=== PATIENT | male | born 1940 | race Caucasian/White ===

== ENCOUNTER 2016-06-21 09:30 | Day surgery (SDC) | payer MEDICARE ==
[2016-06-14 09:02] VITALS: BMI 29.5
[~2016-06-21 09:30] MED LIST: DEXAMETHASONE SOD PHOSPHATE 10 MG/ML 1 ML VIAL IV ONE; FAMOTIDINE 20 MG/2 ML VIAL IV PRN; HEPARIN SODIUM,PORCINE 5,000 UNIT/ML 1 ML VIAL SQ ONE; MIDAZOLAM 2 MG/2 ML VIAL IV PRN; ONDANSETRON 4 MG/2 ML VIAL IVP ONE
[2016-06-21] MEDS: LIDOCAINE 1% 20 ML VIAL (10MG/ML) FOR IV START INTRADERMA PRN ×2 (10:35→10:40)
[2016-06-21] MEDS: LACTATED RINGERS 1,000 ML IV SCH ×2 (10:38→10:39)
[2016-06-21] MEDS ORDERED: INSULIN LISPRO (humaLOG) 300 UNIT/3 ML VIAL SQ ONE ×2 (10:43→14:03)
[2016-06-21 11:06] LABS: Glucose,Whole Blood 208 mg/dL (75-99)
--- NOTE | 2016-06-21 11:13 | P.GSHP ---
History of Present Illness H&P Date: 06/21/16 Chief Complaint: Umbilical hernia This a 75-year-old male who presents today for laparoscopic robotic-assisted repair of incarcerated umbilical hernia. He's had complaints of abdominal pain at his hernia. - Constitutional Constitutional: Reports as per HPI Past Medical History Past Medical History: Diabetes Mellitus, Deep Vein Thrombosis (DVT), GERD/Reflux , Hyperlipidemia, Hypertension, Osteoarthritis (OA) Additional Past Medical History / Comment(s): DVT -LEFT LEG History of Any Multi-Drug Resistant Organisms: None Reported Additional Past Surgical History / Comment(s): colonoscopy, BLADDER STONE REMOVED Past Anesthesia/Blood Transfusion Reactions: No Reported Reaction Past Psychological History: No Psychological Hx Reported Smoking Status: Former smoker Past Alcohol Use History: Rare Additional Past Alcohol Use History / Comment(s): STARTED SMOKING AT AGE 14 QUIT 1982 SMOKED 2PPD Past Drug Use History: None Reported - Past Family History Mother Family Medical History: Dementia Brother(s) Family Medical History: Cancer Additional Family Medical History / Comment(s): LARYNX CANCER Medications and Allergies Home Medications Medication Instructions Recorded Confirmed Type Insulin Glargine,Hum.rec.anlog 30 unit SQ HS 11/20/13 06/14/16 History [Lantus Solostar] Omeprazole [Omeprazole] 20 mg PO DAILY 11/20/13 06/14/16 History Simvastatin [Simvastatin] 40 mg PO HS 11/20/13 06/14/16 History amLODIPine [amLODIPine] 10 mg PO DAILY 11/20/13 06/14/16 History Rivaroxaban [Xarelto] 20 mg PO DAILY 06/14/16 06/15/16 History metFORMIN HCL 1,000 mg PO BID 06/14/16 06/14/16 History Allergies Allergy/AdvReac Type Severity Reaction Status Date / Time codeine Allergy Rash/Hives Verified 06/21/16 10:12 Surgical - Exam Vital Signs Temp Pulse Resp BP Pulse Ox 98.0 F 83 16 183/94 96 06/21/16 10:20 06/21/16 10:20 06/21/16 10:20 06/21/16 10:20 06/21/16 10:20 - General well developed, no distress - Eyes PERRL - ENT normal pinna - Neck no masses - Respiratory normal expansion - Cardiovascular Rhythm: regular - Abdomen Abdomen: soft, non tender Hernia: umbilical (Incarcerated umbilical hernia) Results - Labs Abnormal Lab Results - Last 24 Hours (Table) 06/21/16 Range/Units 10:34 POC Glucose (mg/dL) 208 H (75-99) mg/dL Assessment and Plan Plan: Incarcerated we'll hernia. We'll perform laparoscopic robotic-assisted repair.
[2016-06-21] MEDS ORDERED: BUPIVACAIN-EPI 0.25%-1:200,000 30 ML VIAL SQ ONE (11:37)
[2016-06-21] MEDS ORDERED: fentaNYL (PF) 50 MCG/ML 2 ML AMP ONE (11:40)
[2016-06-21] MEDS ORDERED: ROCURONIUM BROMIDE 10 MG/ML 10 ML VIAL IV ONE (11:40)
[2016-06-21] MEDS ORDERED: PROPOFOL 10 MG/ML 20 ML VIAL IV ONE (11:40)
[2016-06-21] MEDS ORDERED: MIDAZOLAM 2 MG/2 ML VIAL ONE (11:40)
[2016-06-21] MEDS ORDERED: LIDOCAINE 1% INJ 10MG/ML (20 ML MDV) ONE (11:40)
[2016-06-21] MEDS ORDERED: NEOSTIGMINE 1 MG/ML 10 ML VIAL ONE (11:40)
[2016-06-21] MEDS ORDERED: SODIUM CHLORIDE 0.9% 100 ML BAG IV ONE (11:40)
[2016-06-21] MEDS ORDERED: KETOROLAC 30 MG/ML 1 ML VIAL ONE (11:40)
[2016-06-21] MEDS ORDERED: ceFAZolin 1,000 MG VIAL ONE (11:40)
[2016-06-21] MEDS ORDERED: SUCCINYLCHOLINE CHLORIDE VIAL 200 MG/10 ML VIAL IV ONE (11:40)
[2016-06-21] MEDS ORDERED: GLYCOPYRROLATE 0.2 MG/ML 2 ML VIAL ONE (11:40)
[2016-06-21] MEDS: ceFAZolin 2 GM in SODIUM CHLORIDE 0.9% 100 ML IVPB ONE ×2 (11:45→17:04)
[2016-06-21] MEDS: HYDROmorphone 1 MG/ML 1 ML SYRINGE IVP PRN ×4 (13:15→13:36)
[2016-06-21 13:52] LABS: Glucose,Whole Blood 269 mg/dL (75-99)
[2016-06-21] MEDS ORDERED: LACTATED RINGERS 1,000 ML IV ONE (15:21)
[2016-06-21] MEDS ORDERED: ONDANSETRON 4 MG/2 ML VIAL IVP PRN (15:21)
[2016-06-21] MEDS ORDERED: NALOXONE 0.4 MG/ML 1 ML VIAL IV PRN (15:21)
[2016-06-21] MEDS ORDERED: HYDROmorphone 1 MG/ML 1 ML SYRINGE IVP PRN (15:21)
[2016-06-21] MEDS ORDERED: HYDROcodone/APAP 7.5-325MG 1 EACH TAB PO ONE (15:24)
[2016-06-21] MEDS ORDERED: HYDROcodone/APAP 7.5-325MG 1 EACH TAB PO PRN (18:06)
[2016-06-21] MEDS: amLODIPine 10 MG TAB PO SCH (20:00)
[2016-06-21 20:38] LABS: Glucose,Whole Blood 237 mg/dL (75-99)
[2016-06-21] MEDS ORDERED: ATORVASTATIN 20 MG TAB PO SCH (21:00)
[2016-06-21] MEDS ORDERED: HEPARIN SODIUM,PORCINE 5,000 UNIT/ML 1 ML VIAL SQ SCH (21:00)
[2016-06-21] MEDS ORDERED: INSULIN GLARGINE 100 UNIT/ML 10 ML VIAL SQ SCH (21:00)
[2016-06-21] MEDS: metFORMIN 500 MG TAB PO SCH (21:31)
[2016-06-21] MEDS: INSULIN LISPRO (humaLOG) 300 UNIT/3 ML VIAL SQ SCH (21:32)
[2016-06-22] MEDS ORDERED: PANTOPRAZOLE 40 MG TABLET PO SCH (07:30)
[2016-06-22 07:37] LABS: Glucose,Whole Blood 161 mg/dL (75-99)
[2016-06-22] MEDS: metFORMIN 500 MG TAB PO SCH (07:37)
[2016-06-22] MEDS: INSULIN LISPRO (humaLOG) 300 UNIT/3 ML VIAL SQ SCH (07:38)
[2016-06-22] MEDS: amLODIPine 10 MG TAB PO SCH (07:38)
[2016-06-22 07:40] VITALS: BP 155/89; PULSE 90; RESP 18; TEMP 98.5
[2016-06-22 08:59] LABS: Hemoglobin A1C 7.7 % (4.2-6.1)
[2016-06-22] MEDS ORDERED: RIVAROXABAN 10 MG TAB PO SCH (09:00)
--- NOTE | 2016-06-23 19:37 | P.DS ---
Providers Date of admission: 06/21/2016 Expected date of discharge: 06/22/16 Attending physician: Yvon Rivera Consults: 06/21/16 15:23 Consult Physician Routine Consulting Provider: Lexa Aguilar Consult Reason/Comments: Medical management Do you want consulting provider notified?: Yes Primary care physician: Lexa Aguilar Hospital Course: Patient is a 75-year-old male, patient of Dr. Aguilar in the outpatient setting, presenting for elective laparoscopic robotic-assisted repair of incarcerated umbilical hernia. Patient tolerated procedure well. Patient had an uneventful postoperative recovery. Patient was deemed stable for discharge to home with close follow-up in the outpatient setting. The above impression and plan have been discussed and directed by Dr. Rivera. Florin ROMERO acting as scribe for Dr. Rivera. Procedures: Laparoscopic robotic-assisted repair of incarcerated umbilical hernia Patient Condition at Discharge: Good Plan - Discharge Summary New Discharge Prescriptions: HYDROcodone/APAP 7.5-325MG [[place] 7.5] 1 each PO Q4H PRN #60 tab PRN Reason: Pain Discharge Medication List Insulin Glargine,Hum.rec.anlog [Lantus Solostar] 30 unit SQ HS 11/20/13 [History ] Omeprazole [Omeprazole] 20 mg PO DAILY 11/20/13 [History] Simvastatin [Simvastatin] 40 mg PO HS 11/20/13 [History] amLODIPine [amLODIPine] 10 mg PO DAILY 11/20/13 [History] Rivaroxaban [Xarelto] 20 mg PO DAILY 06/14/16 [History] metFORMIN HCL 1,000 mg PO BID 06/14/16 [History] HYDROcodone/APAP 7.5-325MG [[place] 7.5] 1 each PO Q4H PRN #60 tab 06/21/16 [Rx] Follow up Appointment(s)/Referral(s): Yvon Rivera MD [STAFF PHYSICIAN] - 06/29/16 2:50 pm Patient Instructions/Handouts: *Surgery [facility] - (Anesthesia) Discharge Instructions Outpatient Surgery, Laparoscopic Herniorrhaphy (DC), Skin Adhesive Care (DC) Activity/Diet/Wound Care/Special Instructions: APPOINTMENT WITH DR RIVREA 06/29/16 AT 2:50PM FOR FOLLOW UP. No heavy lifting, pushing, or pulling items greater than 10 pounds. Soft diet Shower daily, no soaking in bath tubs, pools, or hot tubs. No driving while taking pain medication. Notify surgeon with any signs or symptoms of infection, increased pain, or not tolerating diet. Discharge Disposition: HOME SELF-CARE
--- NOTE | 2016-07-06 15:28 | P.OP ---
Date of Procedure: 07/06/16 Preoperative Diagnosis: Incarcerated umbilical hernia Postoperative Diagnosis: Incarcerated umbilical hernia Procedure(s) Performed: Laparoscopic robotic-assisted repair of incarcerated umbilical hernia Anesthesia: MIGUEL Surgeon: Yvon Chahal Estimated Blood Loss (ml): 5 Pathology: none sent Disposition: PACU Description of Procedure: The patient's placed on the operating table in the supine position. He received general anesthesia. His abdomen was prepped and draped in usual sterile fashion. The 5 mm blade less trocar was placed in the left upper quadrant under direct visualization. The abdomen was then insufflated and then after adequate insufflation the laparoscope was placed into the peritoneal cavity. Next a 8 mm robotic trocar was placed in the left lower quadrant and then a 12 mm trocar was placed in the left lateral position. The original 5 mm trocar was exchanged for an 8 mm trocar. Next the patient was placed in the left side up position. He was docked to the robot. The umbilical hernia was seen. The incarcerated omentum was reduced. The hook cautery was used for dissection of the omentum. The fascial defect was then closed using OV lock suture. And then an [address] mesh was placed over top of the repair and secured with 2 OV lock suture. The patient was then undocked the robot. The needles were retrieved. The fascia of the 12 mm trocar site was closed with 0 Ethibond suture. The skin was closed interrupted 3-0 Monocryl suture. There monitors applied. Patient top procedure well and was sent to recovery room stable condition.
== END 2016-06-22 10:43 | disposition home or self-care (01) ==
LOC: OR 09:30 → 3SUR 12:59 → OR 06-22 10:43
PROVIDERS: ATTEND Surgery
DX: K42.0 Umbilical hernia with obstruction, without gangrene (principal); E11.9 Type 2 diabetes mellitus without complications; K21.9 Gastro-esophageal reflux disease without esophagitis; E78.5 Hyperlipidemia, unspecified; I10 Essential (primary) hypertension; M19.90 Unspecified osteoarthritis, unspecified site; Z87.891 Personal history of nicotine dependence; Z79.84 Long term (current) use of oral hypoglycemic drugs; Z79.4 Long term (current) use of insulin; Z79.899 Other long term (current) drug therapy; Z79.01 Long term (current) use of anticoagulants; Z88.5 Allergy status to narcotic agent; Z86.718 Personal history of other venous thrombosis and embolism
CPT/HCPCS: 49653; 83036; C1781; J2250; J0330; J1644; J1100; J2710; J2405; J0690; J2001; J3010; J1885; J1170; J2704

== ENCOUNTER 2016-08-27 09:09 | Emergency (ER) | payer MEDICARE ==
[2016-08-27 09:16] VITALS: RESP 18
[2016-08-27] MEDS ORDERED: HYDROmorphone 1 MG/ML 1 ML SYRINGE IVP STA (09:28)
[2016-08-27] MEDS ORDERED: ONDANSETRON 4 MG/2 ML VIAL IVP STA (09:28)
[2016-08-27] MEDS ORDERED: CIPROFLOXACIN-DEXAMETH 0.3-0.1% DROPS 7.5 ML BTL BOTH EARS STA (09:34)
--- NOTE | 2016-08-27 09:38 | ED ---
ENT HPI - General Chief complaint: ENT Stated complaint: ear pain Time Seen by Provider: 08/27/16 09:18 Source: patient Mode of arrival: ambulatory Limitations: no limitations - History of Present Illness Initial comments: 76-year-old male patient presents to emergency department today for complaints of bilateral ear pain. Patient states that the pain started last Sunday when he was visiting his son in [place]. He states that he was seen at urgent care on Sunday and was told he had fluid in his years and given a decongestant. Patient then went to visit his other son in [place] and when traveling back had to stop at an emergency department in [place] because the pain was much worse. At that point he was diagnosed with bilateral ear infection and given Keflex 500mg BID and neomycin drops. Patient states that the pain started in the left ear, pain has improved somewhat in the left, but now is more severe in the right side. Patient states that the pain radiates into his head and down his neck. Patient states the pain is causing headaches. Patient denies any nasal congestion, sore throat, fever, weakness, dizziness, chest pain, back pain , or shortness of breath. Patient denies any has patient, diarrhea, or urinary symptoms. Patient does have a past medical history significant for Type 2 diabetes controlled with both oral medication and insulin. - Related Data Home Medications Medication Instructions Recorded Confirmed Insulin Glargine,Hum.rec.anlog 30 unit SQ HS 11/20/13 06/14/16 [Lantus Solostar] Omeprazole [Omeprazole] 20 mg PO DAILY 11/20/13 06/14/16 Simvastatin [Simvastatin] 40 mg PO HS 11/20/13 06/14/16 amLODIPine [amLODIPine] 10 mg PO DAILY 11/20/13 06/14/16 Rivaroxaban [Xarelto] 20 mg PO DAILY 06/14/16 06/15/16 metFORMIN HCL 1,000 mg PO BID 06/14/16 06/14/16 Previous Rx's Medication Instructions Recorded HYDROcodone/APAP 7.5-325MG [[place] 1 each PO Q4H PRN #60 tab 06/21/16 7.5] Ciprofloxacin-Dexameth [Ciprodex 4 drops BOTH EARS BID #1 bottle 08/27/16 Otic Susp] Hydrocodone/Acetaminophen [[place] 1 tab PO Q6HR PRN #20 tab 08/27/16 5-325] Levofloxacin [Levaquin] 500 mg PO DAILY #10 tab 08/27/16 Allergies Allergy/AdvReac Type Severity Reaction Status Date / Time codeine Allergy Rash/Hives Verified 08/27/16 09:17 Review of Systems ROS Statement: Those systems with pertinent positive or pertinent negative responses have been documented in the HPI. ROS Other: All systems not noted in ROS Statement are negative. Past Medical History Past Medical History: Diabetes Mellitus, Deep Vein Thrombosis (DVT), GERD/Reflux , Hyperlipidemia, Hypertension, Osteoarthritis (OA) Additional Past Medical History / Comment(s): DVT -LEFT LEG, INCARCERATED UMBILICAL HERNIA History of Any Multi-Drug Resistant Organisms: None Reported Additional Past Surgical History / Comment(s): colonoscopy, BLADDER STONE REMOVED, ROBOTIC ASSISTED LAPROSCOPIC INCARCERATED UMBILICAL HERNIA REPAIR W/ MESH Past Anesthesia/Blood Transfusion Reactions: No Reported Reaction Past Psychological History: No Psychological Hx Reported Smoking Status: Former smoker Past Alcohol Use History: None Reported Additional Past Alcohol Use History / Comment(s): STARTED SMOKING AT AGE 14 QUIT 1982 SMOKED 2PPD Past Drug Use History: None Reported - Past Family History Mother Family Medical History: Dementia Brother(s) Family Medical History: Cancer Additional Family Medical History / Comment(s): LARYNX CANCER General Exam Limitations: no limitations General appearance: alert, in no apparent distress Head exam: Present: atraumatic, normocephalic Eye exam: Present: normal appearance, PERRL, EOMI. Absent: conjunctival injection, nystagmus, periorbital swelling Pupils: Present: normal accommodation ENT exam: Present: normal oropharynx, mucous membranes moist. Absent: mucous membranes dry, TM's normal bilaterally Expanded TM/Canal exam: Erythema: Right TM, Left TM, Mastoid Tenderness: Right TM, Left TM, Canal Discharge: Right TM, Left TM (Severe swelling to the right external auditory canal, unable to insert otoscope or visualized TM on the right side. Left canal swelling, some canal drainage noted.), Canal Tenderness: Right TM, Left TM Neck exam: Present: normal inspection, full ROM. Absent: tenderness, meningismus, lymphadenopathy Respiratory exam: Present: normal lung sounds bilaterally. Absent: respiratory distress, wheezes, rales, rhonchi Cardiovascular Exam: Present: normal rhythm, tachycardia, normal heart sounds. Absent: bradycardia, irregular rhythm, systolic murmur, diastolic murmur, rubs, gallop, clicks GI/Abdominal exam: Present: soft, normal bowel sounds. Absent: distended, tenderness, guarding, rebound, rigid Neurological exam: Present: alert, oriented X3, CN II-XII intact. Absent: altered Psychiatric exam: Present: normal affect, normal mood Skin exam: Present: warm, dry, intact, normal color. Absent: rash, diaphoretic , erythema, urticaria Course Vital Signs 08/27/16 08/27/16 08/27/16 09:11 10:25 10:47 Temperature 97.5 F L 98.9 F Pulse Rate 107 H 89 86 Respiratory 18 18 18 Rate Blood Pressure 196/98 171/90 170/91 O2 Sat by Pulse 98 95 94 L Oximetry Medical Decision Making - Medical Decision Making 76-year-old male patient presented to emergency department today for complaints of bilateral ear pain. Physical exam showed severe swelling of the right external auditory canal, as well as bilateral mastoid tenderness. CT of the mastoids did reveal mild bilateral mastoiditis. Lab work was unremarkable. Patient will be discharged home after receiving a dose of oral antibiotics here. Patient be discharged with a prescription for Levaquin as well as a Ciprodex drops. Patient will be given referral to ears nose and throat physician. Patient instructed to return for any worsening, new, or concerning symptoms. Patient verbalizes understanding and agrees with this plan. - Lab Data Result diagrams: 08/27/16 09:50 08/27/16 09:50 Lab Results 08/27/16 08/27/16 08/27/16 Range/Units 09:50 09:50 09:50 WBC 7.9 (3.8-10.6) k/uL RBC 4.58 (4.30-5.90) m/uL Hgb 14.1 (13.0-17.5) gm/dL Hct 40.3 (39.0-53.0) % MCV 88.0 (80.0-100.0) fL MCH 30.8 (25.0-35.0) pg MCHC 35.0 (31.0-37.0) g/dL RDW 14.2 (11.5-15.5) % Plt Count 144 L (150-450) k/uL Neutrophils % 77 % Lymphocytes % 15 % Monocytes % 5 % Eosinophils % 1 % Basophils % 0 % Neutrophils # 6.1 (1.3-7.7) k/uL Lymphocytes # 1.2 (1.0-4.8) k/uL Monocytes # 0.4 (0-1.0) k/uL Eosinophils # 0.0 (0-0.7) k/uL Basophils # 0.0 (0-0.2) k/uL PT 10.3 (9.0-12.0) sec INR 1.0 (<1.1) APTT 24.4 (22.0-30.0) sec Sodium 143 (137-145) mmol/L Potassium 4.2 (3.5-5.1) mmol/L Chloride 101 (98-107) mmol/L Carbon Dioxide 27 (22-30) mmol/L Anion Gap 15 mmol/L BUN 12 (9-20) mg/dL Creatinine 0.80 (0.66-1.25) mg/dL Est GFR (MDRD) Af Amer >60 (>60 ml/min/1.73 sqM) Est GFR (MDRD) Non-Af >60 (>60 ml/min/1.73 sqM) Glucose 277 H (74-99) mg/dL Calcium 9.4 (8.4-10.2) mg/dL Total Bilirubin 0.9 (0.2-1.3) mg/dL AST 32 (17-59) U/L ALT 39 (21-72) U/L Alkaline Phosphatase 70 (38-126) U/L Total Protein 7.7 (6.3-8.2) g/dL Albumin 4.7 (3.5-5.0) g/dL - Radiology Data Radiology results: report reviewed CT mastoid without contrast reveals mastoid air cells show minimal soft tissue attenuation. Findings compatible with minimal bilateral mastoiditis. There is increased soft tissue within the middle ear on the right. Impression by Dr. Delgado reveals abnormal soft tissue attenuation within the middle ear on the right correlate for area of infection or effusion. Disposition Clinical Impression: Mastoiditis, Otitis externa Disposition: HOME SELF-CARE Condition: Stable Instructions: Otitis Externa (ED), Mastoiditis (ED) Additional Instructions: Eardrops put 4 drops into each ear twice daily. Complete antibiotic prescription in full. Make appointment with ears, nose, and throat doctor on Sunday, have ear wick removed by physician. Return for any fever, or other new , worsening, or concerning symptoms. Prescriptions: Ciprofloxacin-Dexameth [Ciprodex Otic Susp] 4 drops BOTH EARS BID #1 bottle Hydrocodone/Acetaminophen [[place] 5-325] 1 tab PO Q6HR PRN #20 tab PRN Reason: Pain Levofloxacin [Levaquin] 500 mg PO DAILY #10 tab Referrals: Lexa Aguilar MD [Primary Care Provider] - 1-2 days Emmanuel Gomes MD [STAFF PHYSICIAN] - 1-2 days Time of Disposition: 10:49
[2016-08-27] MEDS ORDERED: SODIUM CHLORIDE 0.9% 500 ML IV ONE (09:39)
[2016-08-27 10:03] LABS: Basophils % (A) 0 %; CH 31.4; CHCM 35.9; Eosinophils % (A) 1 %; HCT 40.3 % (39.0-53.0); HDW 3.23; HGB 14.1 gm/dL (13.0-17.5); Luc # (Auto) 0.19; Luc % (Auto) 3; Lymphocytes # (A) 1.2 k/uL (1.0-4.8); Lymphocytes % (A) 15 %; MCH 30.8 pg (25.0-35.0); Mean Platelet Volume 7.9; Monocytes # (A) 0.4 k/uL (0-1.0); Monocytes % (A) 5 %; Neutrophils # (A) 6.1 k/uL (1.3-7.7); Neutrophils % (A) 77 %; RBC 4.58 m/uL (4.30-5.90); RDW 14.2 % (11.5-15.5); WBC 7.9 k/uL (3.8-10.6); WBC (Perox) 7.94
[2016-08-27 10:10] LABS: Partial Thromboplastin Time 24.4 sec (22.0-30.0); Prothrombin Time 10.3 sec (9.0-12.0)
[2016-08-27 10:12] LABS: ALT 39 U/L (21-72); AST 32 U/L (17-59); Alkaline Phosphatase 70 U/L (38-126); Anion Gap 15 mmol/L; Blood Urea Nitrogen 12 mg/dL (9-20); Calcium 9.4 mg/dL (8.4-10.2); Carbon Dioxide 27 mmol/L (22-30); Chloride 101 mmol/L (98-107); Glucose 277 mg/dL (74-99); Non-African American GFR(MDRD) >60 (>60 ml/min/1.73 sqM); Potassium 4.2 mmol/L (3.5-5.1); Sodium 143 mmol/L (137-145); Total Bilirubin 0.9 mg/dL (0.2-1.3); Total Protein 7.7 g/dL (6.3-8.2)
--- NOTE | 2016-08-27 10:40 | CT ---
EXAMINATION TYPE: CT mastoid wo con DATE OF EXAM: 08/27/2016 10:31 AM COMPARISON: NONE HISTORY: Bilateral ear pain CT DLP: 150 mGycm Automated exposure control for dose reduction was used. FINDINGS: Mastoid air cells show minimal soft tissue attenuation. Findings compatible with minimal bilateral ma stoiditis. There is increased soft tissue within the middle ear on the right. Visualized orbits and intracranial structures are within normal limits. Nasopharynx and visualized or opharynx symmetric. Parotid glands as visualized have a normal appearance. IMPRESSION: ABNORMAL SOFT TISSUE ATTENUATION WITHIN THE MIDDLE EAR ON THE RIGHT CORRELATE FOR THE AREA OF INFECTI ON OR EFFUSION.
[2016-08-27] MEDS ORDERED: KETOROLAC 30 MG/ML 1 ML VIAL IVP STA (10:50)
[2016-08-27] MEDS ORDERED: LEVOFLOXACIN 750 MG TAB PO STA (10:53)
[2016-08-27 11:03] VITALS: BP 173/94; PULSE 83; TEMP 98.8
== END 2016-08-27 11:15 | disposition home or self-care (01) ==
LOC: EC 09:09
DX: H70.93 Unspecified mastoiditis, bilateral (principal); H60.93 Unspecified otitis externa, bilateral; R00.0 Tachycardia, unspecified; E11.9 Type 2 diabetes mellitus without complications; I82.409 Acute embolism and thrombosis of unspecified deep veins of unspecified lower extremity; K21.9 Gastro-esophageal reflux disease without esophagitis; E78.5 Hyperlipidemia, unspecified; I10 Essential (primary) hypertension; Z87.891 Personal history of nicotine dependence; Z79.4 Long term (current) use of insulin; Z79.899 Other long term (current) drug therapy; Z79.01 Long term (current) use of anticoagulants; Z88.5 Allergy status to narcotic agent
CPT/HCPCS: 99283 ×2; 96374 ×2; 96375 ×3; 36415; 80053; 85025; 85610; 85730; 87040; 87070; 87205; 87077; 87186; 70486; J2405; J1885; J1170

== ENCOUNTER → 2017-10-18 | Outpatient (CLI) | payer MEDICARE ==
[2017-10-18 09:55] LABS: Basophils % (A) 1 %; Eosinophils # (A) 0.1 k/uL (0-0.7); Eosinophils % (A) 2 %; HCT 38.4 % (39.0-53.0); HGB 13.7 gm/dL (13.0-17.5); Lymphocytes # (A) 1.8 k/uL (1.0-4.8); Lymphocytes % (A) 32 %; MCH 30.6 pg (25.0-35.0); MCHC 35.5 g/dL (31.0-37.0); MCV 86.2 fL (80.0-100.0); Mean Platelet Volume 7.2; Monocytes # (A) 0.3 k/uL (0-1.0); Monocytes % (A) 6 %; Neutrophils # (A) 3.1 k/uL (1.3-7.7); Neutrophils % (A) 58 %; Platelet Count 169 k/uL (150-450); RBC 4.46 m/uL (4.30-5.90); RDW 13.4 % (11.5-15.5); WBC 5.4 k/uL (3.8-10.6)
[2017-10-18 10:04] LABS: Partial Thromboplastin Time 23.1 sec (22.0-30.0)
[2017-10-18 10:38] LABS: ALT 36 U/L (21-72); AST 38 U/L (17-59); Albumin 4.6 g/dL (3.5-5.0); Alkaline Phosphatase 60 U/L (38-126); Anion Gap 15 mmol/L; Blood Urea Nitrogen 16 mg/dL (9-20); Calcium 9.7 mg/dL (8.4-10.2); Carbon Dioxide 26 mmol/L (22-30); Chloride 101 mmol/L (98-107); Glucose 146 mg/dL (74-99); Potassium 4.2 mmol/L (3.5-5.1); Sodium 142 mmol/L (137-145); Total Bilirubin 0.7 mg/dL (0.2-1.3); Total Protein 7.1 g/dL (6.3-8.2)
--- NOTE | 2017-10-18 11:36 | XR ---
EXAMINATION TYPE: XR chest 2V DATE OF EXAM: 10/18/2017 COMPARISON: NONE HISTORY: Preprocedural examination TECHNIQUE: Frontal and lateral views of the chest are obtained. FINDINGS: There is no focal air space opacity, pleural effusion, or pneumothorax seen. The cardiac silhouette size is within normal limits. The osseous structures are intact. Mild acromioclavicular arthropathy is seen. Slight pulmonary hyperinflation that could relate to degree of inspiration or un derlying COPD. IMPRESSION: No acute cardiopulmonary process. Slight pulmonary hyperinflation that could relate to d egree of inspiration or underlying COPD. Correlate with pulmonary function tests.
[2017-10-18 20:04] LABS: Hemoglobin A1C 7.4 % (4.0-6.0)
== END | disposition home or self-care (01) ==
LOC: LABPAT 08:47
PROVIDERS: ATTEND Orthopaedic Surgery
DX: Z01.818 Encounter for other preprocedural examination (principal); Z01.812 Encounter for preprocedural laboratory examination; E11.9 Type 2 diabetes mellitus without complications; Z79.01 Long term (current) use of anticoagulants
CPT/HCPCS: 36415; 71046; 80053; 83036; 85025; 85610; 85730; 87070; 93005

== ENCOUNTER 2017-10-30 08:00 | Inpatient (IN) | payer MEDICARE ==
[2017-10-19 16:06] VITALS: BMI 28.5
--- NOTE | 2017-10-29 09:21 | HP ---
HISTORY AND PHYSICAL CHIEF COMPLAINT: Right knee pain. HISTORY OF PRESENT ILLNESS: The patient is a 77-year-old retired male who presents with progressive right knee pain, worsening over the past 6 months. He notes swelling and stiffness. He notes the pain limits his normal function and activities. He has occasional giving way. He has tried medications in addition to injections with only partial temporary relief. PAST MEDICAL HISTORY: Significant for hypertension, [id number] diabetes, and DVT. PAST SURGICAL HISTORY: Negative. CURRENT MEDICATIONS: Amlodipine, glipizide, lisinopril, metformin, Prilosec, and Xarelto. He notes allergies to CODEINE. FAMILY HISTORY: Significant for cancer. SOCIAL HISTORY: Negative for current tobacco or alcohol use. 16 POINT REVIEW OF SYSTEMS: Otherwise reviewed and is noncontributory. PHYSICAL EXAMINATION: On examination, the patient is approximately 5 foot 9, 198 pounds of mesomorphic habitus. HEENT exam is nonfocal. Neck is supple. He has painless passive motion of the right hip. Straight leg raise is negative. Active motion right knee -10 to 110 degrees of flexion. He has a moderate effusion. He is tender about the medial joint line. His collaterals are stable, Rogelio is negative, Breezy's is equivocal. He has genu varum alignment. His distal neurovascular exam appears intact in the right lower extremity. X-rays to include weightbearing notch, lateral and Merchant views of the right knee obtained in the office show severe medial and patellofemoral compartment narrowing. The previous vertical patella fracture is healed. IMPRESSION: 1. Right knee severe tricompartmental osteoarthrosis. 2. History of deep vein thrombosis. RECOMMENDATIONS: I talked to the patient at length regarding his condition and treatment options. At this point, he is quite symptomatic and opts to proceed with surgery. We will plan to proceed with right total knee arthroplasty. Risks and benefits were discussed at length in layman's terms. We will reinstitute DVT prophylaxis postoperatively. MMODL / IJN: [id number] /
[~2017-10-30 08:00] MED LIST changes: +ACETAMINOPHEN TAB 500 MG TAB PO ONE; -DEXAMETHASONE SOD PHOSPHATE 10 MG/ML 1 ML VIAL IV ONE; -HEPARIN SODIUM,PORCINE 5,000 UNIT/ML 1 ML VIAL SQ ONE; +LIDOCAINE 1% 20 ML VIAL (10MG/ML) FOR IV START INTRADERMA PRN; +MELOXICAM 7.5 MG TAB PO ONE; -MIDAZOLAM 2 MG/2 ML VIAL IV PRN; +MORPHINE SULFATE 4 MG/ML SYRINGE IV PRN; +TRANEXAMIC ACID 1,000 MG in SODIUM CHLORIDE 0.9% 50 ML IVPB ONE; +ceFAZolin IN SWFI 2 GM/20 ML SYRINGE IVP ONE
[2017-10-30] MEDS: LACTATED RINGERS 1,000 ML IV SCH (10:07)
[2017-10-30 10:08] LABS: Glucose,Whole Blood 158 mg/dL (75-99)
[2017-10-30] MEDS: ROPIVACAINE 246.25 MG, EPINEPHrine 0.5 MG, KETOROLAC 30 MG, cloNIDine HCL/PF 80 MCG, WA... MISCELLANE ONE ×10 (10:08→11:09)
[2017-10-30] MEDS ORDERED: MIDAZOLAM 2 MG/2 ML VIAL ONE ×2 (10:09→10:35)
[2017-10-30] MEDS ORDERED: MIDAZOLAM 2 MG/2 ML VIAL IVP ONE (10:13)
[2017-10-30] MEDS ORDERED: TRANEXAMIC ACID 1,000 MG/10 ML VIAL ONE (10:35)
[2017-10-30] MEDS ORDERED: diphenhydrAMINE 50 MG/ML 1 ML VIAL ONE (10:35)
[2017-10-30] MEDS ORDERED: SODIUM CHLORIDE 0.9% 100 ML BAG ONE (10:35)
[2017-10-30] MEDS ORDERED: ROPIVACAINE 1,100 MG, SODIUM CHLORIDE 0.9% 330 ML MISCELLANE PRN ×2 (10:59)
--- NOTE | 2017-10-30 11:01 | P.ONQ ---
Anesthesiology Proc Note - PNB - Peripheral Nerve Block Performed Right Adductor Canal Infusion Time Out Performed: Yes Procedure Start Time: 10:14 Procedure Stop Time: 10:30 Indication: Acute Post-Operative Pain, Requested by physician Preparation: Sterile Dressing Position: Supine Catheter: Indwelling Needle Types: On-Q Needle Size: 50mm (2") Needle Gauge: 21 Technique: Ultrasound Injectate: 0.5% Ropivacaine (see comment for volume) (ropi .5% 20cc) Blood Aspirated: No Pain Paresthesia on Injection Noted: No Resistance on Injection: Normal Events: Uneventful and Well Tolerated
[2017-10-30] MEDS ORDERED: ceFAZolin 3,000 MG in SODIUM CHLORIDE 0.9% IRRIGATIO 3,000 ML IRRIGATION ONE (11:10)
[2017-10-30] MEDS ORDERED: LACTATED RINGERS 1,000 ML IV ONE (12:11)
[2017-10-30] MEDS ORDERED: HYDROcodone/APAP 5-325MG 1 EACH TAB PO PRN ×2 (12:23)
[2017-10-30] MEDS ORDERED: MAGNESIUM HYDROXIDE 2,400 MG/10 ML CUP PO PRN (12:23)
[2017-10-30] MEDS ORDERED: MORPHINE SULFATE 4 MG/ML SYRINGE IV PRN (12:23)
[2017-10-30] MEDS ORDERED: MORPHINE SULFATE 4 MG/ML SYRINGE IVP PRN ×2 (12:23)
[2017-10-30] MEDS ORDERED: ACETAMINOPHEN TAB 325 MG TAB PO PRN (12:23)
[2017-10-30] MEDS ORDERED: NALOXONE 0.4 MG/ML 1 ML VIAL IV PRN (12:23)
[2017-10-30] MEDS ORDERED: traMADol 50 MG TAB PO PRN (12:23)
--- NOTE | 2017-10-30 12:57 | P.OP ---
Date of Procedure: 10/30/17 Preoperative Diagnosis: right knee severe tricompartmental osteoarthrosis Postoperative Diagnosis: same Procedure(s) Performed: right total knee arthroplasty- cemented- posterior stabilized Implants: Depuy Attune size 7 cemented posterior stabilized femoral component, size 8 cemented tibial component, 11 mm articular surface, 38 mm cemented patellar component. Anesthesia: spinal Surgeon: Augusto George Truck Headlight Assembler #1: Fred Shi Estimated Blood Loss (ml): 50 Pathology: other (bone fragments) Condition: stable Disposition: PACU Indications for Procedure: The patient is a 77-year-old male who presents with progressive right knee pain secondary to osteoarthrosis despite conservative measures. A discussion of the risks and benefits of operative intervention versus continued conservative measures was made with the patient. He opted to proceed with surgery. Operative risks to include infection, neurovascular injury, development of blood clots, possible component loosening, possible component failure and need for subsequent procedures was discussed. Informed consent was obtained. Operative Findings: as below Description of Procedure: The patient was brought to the operating room, and after induction of spinal anesthesia the right lower extremity was prepped and draped in normal fashion. The tourniquet was inflated to 250 mmHg.a longitudinal incision extending 3 finger breaths above the superior pole the patella extending to the medial aspect the tibial tubercle was then made. Skin and subcutaneous tissues were divided sharply. Electrocautery was used for hemostasis. A medial parapatellar arthrotomy was then performed. The patella was everted and a portion of the the patella fat pad was excised sharply. The medial soft tissues to include the superficial and deep portions the medial collateral ligament as well as the medial hamstring tendons were elevated subperiosteally. I also elevated the posterior medial capsule. The proximal medial tibial osteophytes were carefully removed. The patella was everted and the knee flexed. The anterior cruciate ligament was sacrificed. A starting hole was made in the distal femur 1 cm anterior to the posterior cruciate ligament origin. An intramedullary femoral guide was gently inserted planning on 5 valgus distal cut with 9 mm distal resection. The cutting block was pinned in place. The distal cut was then made. The posterior referencing sizing guide was utilized. I felt size 7 was most appropriate. 3 of external rotation was built into the system and verified off the trans-epicondylar axis and the posterior condyles. The cutting block was pinned in place. The anterior, posterior, and chamfer cuts were then made. The bone fragments were removed. The box cutting guide was placed in the intercondylar box cut was made with a reciprocating saw. The size 7 posterior stabilized femoral component was then placed and was fully seated. There was good anterior to posterior and medial to lateral fit. The distal peg holes were then drilled. The trial component was removed. An extra medullary tibial guide was utilized in line with the tibial shaft and second metatarsal distally. I planned on 3 posterior slope. I planned on 2 mm resection from the medial compartment. The cutting block was pinned in place.the proximal tibial cut was then made. The bone was removed in one fragment. The tibia sized most appropriate size 8. The remnants of the medial and lateral menisci were excised at the capsular junction with electrocautery. The posterior osteophytes off the distal femur were carefully removed with a curved osteotome. The trial femoral and tibial components were placed along with an 11 mm articular surface. I was able to obtain full flexion and extension with good stability with varus and valgus stress. The tibial rotation was marked with electrocautery in line with the medial one third of the tibial tubercle after several flexion and extension cycles. Attention was then paid towards preparing the patella. A patella reamer was utilized taking this down to 14 mm of bone stock. A good flush cut was made. The patella sized most appropriately 38 mm. The peg holes were drilled. The trial patella was placed and knee was taken through range of motion. I had good patellofemoral tracking with no hands technique. The trial components were then removed. The tibia was prepared in the appropriate rotation with appropriate drill and keel punch. The flexion and extension gaps were checked and felt to be symmetric. The bony surfaces were prepared with pulsatile lavage and dried. The tibial component was then cemented in placed and was fully seated. Excess cement was removed. The femoral component cemented in placed and was fully seated. Excess cement was removed. The trial 11 mm articular surface placed and the knee was put in full extension. The patella component was cemented in placed and was fully seated. Excess cement was removed. After the cement had sufficiently hardened, the knee was again taken through range of motion. Again I had good stability in flexion and extension with varus and valgus stress. The trial articular surface was removed and the final one inserted.care was taken to avoid any soft tissue interposition. Pulsatile lavage was again utilized. The tourniquet was deflated with approximately 65 minutes total tourniquet time. Final hemostasis was obtained with electrocautery and a second dose of IV TXA given. The medial parapatellar arthrotomy was closed with #2 Ethibond suture. A deep drain was placed exiting laterally. The subcutaneous tissues were reapproximated interrupted 2-0 Vicryl sutures. The skin was reapproximated 3-0 subarticular strata fix suture. Skin tape and adhesive was applied. A sterile dressing was applied. The patient was awoken from sedation and transferred to the recovery room in good condition. Blood loss was estimated at 50 mL. No complications were incurred. Sponge and needle counts were correct at the end of the case.
--- NOTE | 2017-10-30 13:06 | XR ---
EXAMINATION TYPE: XR knee limited RT DATE OF EXAM: 10/30/2017 CLINICAL HISTORY: Right knee pain and arthritis status post total knee replacement. TECHNIQUE: Portable AP and crosstable lateral views of the right knee are obtained immediately posto peratively. COMPARISON: 04/20/2017 FINDINGS: Metallic hardware from total right knee arthroplasty is seen and radha ears satisfactory in alignment and position. There is evidence of recent surgery with diffuse subcut aneous gas, soft tissue swelling, and percutaneous suprapatellar surgical drain noted. Extensive athe rosclerosis is noted of the femoral artery and branches. IMPRESSION: METALLIC HARDWARE FROM TOTAL RIGHT KNEE ARTHROPLASTY IS SATISFACTORY IN ALIGNMENT.
[2017-10-30 13:20] LABS: Glucose,Whole Blood 166 mg/dL (75-99)
[2017-10-30] MEDS: PANTOPRAZOLE 40 MG TABLET PO SCH (15:36)
[2017-10-30] MEDS: amLODIPine 10 MG TAB PO SCH (15:37)
[2017-10-30 16:40] LABS: Glucose,Whole Blood 148 mg/dL (75-99)
--- NOTE | 2017-10-30 17:02 | P.CONS ---
History of Present Illness - Reason for Consult Consult date: 10/30/17 Postoperative medical management - Chief Complaint Right total knee arthroplasty - History of Present Illness 77-year-old male with history of diabetes type 2, hypertension, history of DVT. Patient presented for elective right total knee arthroplasty due to severe advanced degenerative joint disease failing conservative medical therapy. Patient has been on Xarelto due to history of DVT. This has been resumed postoperatively. Patient has tolerated procedure well no observed immediate perioperative complications. Patient seen and examined this operative day 0. Denies any chest pain or trouble breathing, denies any fevers or chills, reports pain is well tolerated. He currently has a pain pump over his right thigh. Patient still have his Galeano catheter in. Patient did not eat yet. Review of Systems Constitutional: Patient denies fever, denies chills, denies night sweating, denies significant weight changes Eyes: Patient denies visual changes, denies eye pain ENT: Patient denies ear pain, denies rhinorrhea, denies sore throat Cardiovascular: Patient denies chest pain, denies exertional dyspnea, denies peripheral leg edema, denies orthopnea, denies paroxysmal nocturnal dyspnea Respiratory:Patient denies cough, denies wheezing, denies shortness of breath Gastrointestinal: Patient denies diarrhea, denies constipation, denies nausea , denies vomiting, denies abdominal pain Genitourinary: Patient denies dysuria, denies hematuria, denies changes in urinary habits, denies genital lesions Musculoskeletal: Patient denies muscle pain, reports chronic history of knee pain Psychiatric: Patient denies changes in mood or memory, denies suicidal ideation, denies anxiety Endocrine: Patient denies heat intolerance, denies cold intolerance, denies excessive thirst, denies polyuria Neurological: Patient denies focal neurologic deficits, denies weakness, denies numbness, denies tingling Hem/Lymphatic: Patient denies bleeding tendency, denies bruising, denies swollen lymph glands Allergic/Immun: Patient denies recent allergic reactions Skin: Patient denies rashes, denies pruritis, denies ulcers Past Medical History Past Medical History: Diabetes Mellitus, Deep Vein Thrombosis (DVT), GERD/Reflux , Hyperlipidemia, Hypertension, Osteoarthritis (OA) Additional Past Medical History / Comment(s): DVT -LEFT LEG, INCARCERATED UMBILICAL HERNIA History of Any Multi-Drug Resistant Organisms: None Reported Past Surgical History: Orthopedic Surgery Additional Past Surgical History / Comment(s): colonoscopy, BLADDER STONE REMOVED, ROBOTIC ASSISTED LAPROSCOPIC INCARCERATED UMBILICAL HERNIA REPAIR W/ MESH, TOTAL RIGHT KNEE 10-30-17 Past Anesthesia/Blood Transfusion Reactions: No Reported Reaction Past Psychological History: No Psychological Hx Reported Smoking Status: Former smoker Past Alcohol Use History: None Reported Additional Past Alcohol Use History / Comment(s): STARTED SMOKING AT AGE 15QUIT AGE 37 SMOKED 1 1/2 PPD Past Drug Use History: None Reported - Past Family History Son(s) Family Medical History: Cancer Additional Family Medical History / Comment(s): LUNG CANCER Mother Family Medical History: Dementia Brother(s) Family Medical History: Cancer Additional Family Medical History / Comment(s): LARYNX CANCER Medications and Allergies Home Medications Medication Instructions Recorded Confirmed Type Insulin Glargine,Hum.rec.anlog 30 unit SQ HS 11/20/13 10/30/17 History [Lantus Solostar] Omeprazole [Omeprazole] 20 mg PO DAILY 11/20/13 10/30/17 History Simvastatin [Simvastatin] 40 mg PO HS 11/20/13 10/30/17 History amLODIPine [amLODIPine] 10 mg PO DAILY 11/20/13 10/30/17 History metFORMIN HCL 1,000 mg PO BID 06/14/16 10/30/17 History Dulaglutide [Trulicity] 1.5 mg SQ TU 04/20/17 10/30/17 History Rivaroxaban [Xarelto] 20 mg PO DAILY 04/20/17 10/30/17 History Allergies Allergy/AdvReac Type Severity Reaction Status Date / Time codeine Allergy Rash/Hives Verified 10/30/17 14:18 Physical Exam Vitals: Vital Signs Temp Pulse Pulse Resp BP Pulse Ox 10/30/17 16:00 69 16 172/95 93 L 10/30/17 15:45 70 16 162/89 93 L 10/30/17 15:30 75 16 161/98 92 L 10/30/17 15:15 71 16 163/91 97 10/30/17 15:00 72 16 157/91 94 L 10/30/17 14:45 65 16 143/88 95 10/30/17 14:30 66 16 155/91 97 10/30/17 14:15 67 16 150/81 98 10/30/17 14:00 98 F 71 16 147/81 96 10/30/17 13:31 62 16 139/66 99 10/30/17 13:16 64 16 142/84 100 10/30/17 13:01 65 16 151/70 98 10/30/17 12:46 97 F L 69 16 134/74 99 10/30/17 09:56 97.8 F 74 16 186/89 97 Intake and Output 10/30/17 10/30/17 10/30/17 06:59 14:59 22:59 Intake Total 1301 Output Total 950 150 Balance 351 -150 Intake: IV 1301 Output: Drainage 150 Right Knee 150 Urine 900 Estimated Blood Loss 50 Other: Weight 87.54 kg Constitutional: No acute distress, conversant, pleasant Eyes: Anicteric sclerae, moist conjunctiva, no lid-lag Pupils equal round reactive to light ENMT: NC/AT Oropharynx clear, no erythema, or exudates Neck: Supple, FROM, no masses, or JVD No carotid bruits No thyromegaly Lungs: Clear to auscultation Clear to percussion Normal respiratory effort, no accessory muscle use Cardiovascular: Heart regular in rate and rhythm, No murmurs, gallops, or rubs No peripheral edema Abdominal: Soft Nontender, no guarding, rebound or rigidity Abdomen moving with respiration Normoactive bowel sounds No hepatomegaly, No splenomegaly No palpable mass No abdominal wall hernia noted Galeano cath in place, clear yellow urine Skin: Normal temperature, tone, texture, turgor No induration No subcutaneous nodules No rash, lesions No ulcers Extremities: Right lower extremity wrapped in surgical dressing, thigh compartment and leg compartment soft to the touch, distal pulses over the right lower extremity is intact and strong. Drain under negative pressure in the right knee. Pain pump over the right thigh. No digital cyanosis No clubbing Pedal pulses intact and symmetrical Radial pulses intact and symmetrical No calf tenderness Psychiatric: Alert and oriented to person, place and time Appropriate affect fair judgment Neuro Muscles Strength 5/5 in all 4 extremities except for limited exam over the right lower extremity due to surgery fear of pain. Sensation to light touch grossly present throughout Cranial nerves II-XII grossly intact No focal sensory deficits Lymphatics: no palpable cervical or supraclavicular , or inguinal lymph nodes Results Labs: Abnormal Lab Results - Last 24 Hours (Table) 10/30/17 10/30/1710/30/18 Range/Units 10:04 13:16 16:38 POC Glucose (mg/dL) 158 H 166 H 148 H (75-99) mg/dL Assessment and Plan Assessment: 77-year-old male with history of DVT on Xarelto, hypertension, diabetes type 2. Presented for elective right total knee arthroplasty. Patient tolerated procedure well. Medicine was consulted for postoperative medical management. Patient was seen on postoperative day 0 Plan: Right degenerative joint disease, status post right total knee arthroplasty, postoperative day 0 Pain management per orthopedics DVT prophylaxis per orthopedics, currently on xarelto #Hypertension, slightly elevated now Asymptomatic Continue home medications Optimize pain control Continue to monitor vital signs #Abuse with this type II on oral hypoglycemics and insulin Continue with long-acting insulin at home dose Hold oral hypoglycemic agents Abdomen short acting insulin sliding scale per protocol #History of DVT, currently on Xarelto Resume Xarelto #History of GERD On PPI daily Follow-up morning labs Consider removing Galeano catheter, monitor for urine output check PVR Thank you for allowing us to participate in the care of this patient. Do not hesitate to contact us with questions. Someone can be reached from the [facility] hospitalist group at all hours of the day at [phone].
[2017-10-30] MEDS: INSULIN ASPART 100 UNIT/ML 1 ML 10 ML VIAL SQ SCH ×2 (17:27→20:57)
[2017-10-30] MEDS: SENNOSIDES-DOCUSATE SODIUM 1 EACH TAB PO SCH (20:52)
[2017-10-30] MEDS: ATORVASTATIN 20 MG TAB PO SCH (20:53)
[2017-10-30] MEDS: ceFAZolin IN SWFI 2 GM/20 ML SYRINGE IVP SCH (20:53)
[2017-10-30] MEDS: INSULIN DETEMIR 100 UNIT/ML 10 ML VIAL SQ SCH (20:56)
[2017-10-30 20:58] LABS: Glucose,Whole Blood 185 mg/dL (75-99)
[2017-10-31] MEDS: LACTATED RINGERS 1,000 ML IV SCH (02:19)
[2017-10-31] MEDS: ceFAZolin IN SWFI 2 GM/20 ML SYRINGE IVP SCH (03:39)
[2017-10-31 07:00] LABS: Glucose,Whole Blood 187 mg/dL (75-99)
[2017-10-31 07:51] LABS: Basophils % (A) 0 %; Eosinophils % (A) 0 %; HCT 34.6 % (39.0-53.0); HGB 11.7 gm/dL (13.0-17.5); Lymphocytes # (A) 0.9 k/uL (1.0-4.8); Lymphocytes % (A) 14 %; MCH 30.1 pg (25.0-35.0); MCHC 33.9 g/dL (31.0-37.0); MCV 88.9 fL (80.0-100.0); Mean Platelet Volume 7.1; Monocytes # (A) 0.3 k/uL (0-1.0); Monocytes % (A) 5 %; Neutrophils % (A) 79 %; Platelet Count 150 k/uL (150-450); RBC 3.89 m/uL (4.30-5.90); WBC 6.4 k/uL (3.8-10.6)
[2017-10-31] MEDS: INSULIN ASPART 100 UNIT/ML 1 ML 10 ML VIAL SQ SCH ×4 (08:07→21:03)
[2017-10-31 08:16] LABS: ALT 36 U/L (21-72); AST 28 U/L (17-59); Albumin 3.8 g/dL (3.5-5.0); Alkaline Phosphatase 44 U/L (38-126); Anion Gap 13 mmol/L; Blood Urea Nitrogen 14 mg/dL (9-20); Calcium 8.9 mg/dL (8.4-10.2); Carbon Dioxide 23 mmol/L (22-30); Chloride 102 mmol/L (98-107); Glucose 176 mg/dL (74-99); Potassium 4.5 mmol/L (3.5-5.1); Sodium 138 mmol/L (137-145); Total Bilirubin 0.6 mg/dL (0.2-1.3); Total Protein 5.9 g/dL (6.3-8.2)
[2017-10-31] MEDS ORDERED: FAMOTIDINE 20 MG TAB PO SCH (09:00)
[2017-10-31] MEDS: RIVAROXABAN 10 MG TAB PO SCH (09:29)
[2017-10-31] MEDS: amLODIPine 10 MG TAB PO SCH (09:29)
[2017-10-31] MEDS: PANTOPRAZOLE 40 MG TABLET PO SCH (09:29)
--- NOTE | 2017-10-31 10:58 | P.PN ---
Subjective Progress Note Date: 10/31/17 Principal diagnosis: Status post right total knee arthroplasty Patient seen today resting in his hospital bed, he appears comfortable. He done very well with therapy. He is urinating on his own. He denies any headaches, lightheadedness, chest pain or shortness of breath. Objective - Vital Signs Vital signs: Vital Signs Temp 98.5 F 10/31/17 08:03 Pulse 78 10/31/17 08:03 Resp 16 10/31/17 08:03 BP 168/80 10/31/17 08:03 Pulse Ox 96 10/31/17 08:03 Intake & Output 10/30/17 10/31/17 10/31/17 18:59 06:59 18:59 Intake Total 1301 180 Output Total 1100 2300 200 Balance 201 -2300 -20 Weight 87.54 kg 87.54 kg 87.54 kg Intake: IV 1301 Oral 180 Output: Drainage 150 350 Right Knee 150 350 Urine 900 1950 200 Uretheral (Galeano) 1500 200 Stool 0 Estimated Blood Loss 50 Other: Voiding Method Indwelling Catheter Indwelling Catheter - Exam Right lower extremity: Incision is clean, dry, and intact. The prineo tape is in good condition. There is minimal soft tissue swelling and ecchymosis surrounding the medial and lateral aspects of the incision. Calf is soft, no tenderness with palpation. Plantar flexion, dorsiflexion, EHL, FHL are intact. Sensory exam to light touch throughout the extremity is intact, dorsal pedis pulses 2+. - Labs CBC & Chem 7: 10/31/17 06:35 10/31/17 06:35 Labs: Abnormal Lab Results - Last 24 Hours (Table) 10/30/17 10/30/17 10/30/17 Range/Units 13:16 16:38 20:48 RBC (4.30-5.90) m/uL Hgb (13.0-17.5) gm/dL Hct (39.0-53.0) % Lymphocytes # (1.0-4.8) k/uL Glucose (74-99) mg/dL POC Glucose (mg/dL) 166 H 148 H 185 H (75-99) mg/dL Total Protein (6.3-8.2) g/dL 10/31/17 10/31/17 10/31/17 Range/Units 06:35 06:35 06:50 RBC 3.89 L (4.30-5.90) m/uL Hgb 11.7 L (13.0-17.5) gm/dL Hct 34.6 L (39.0-53.0) % Lymphocytes # 0.9 L (1.0-4.8) k/uL Glucose 176 H (74-99) mg/dL POC Glucose (mg/dL) 187 H (75-99) mg/dL Total Protein 5.9 L (6.3-8.2) g/dL Assessment and Plan Plan: Assessment: 1. Postop day #1 status post right total knee arthroplasty Plan: Pain control, we'll discharge home on oral medication GI and DVT prophylaxis, he will resume Xarelto 20 mg daily Home care nursing after discharge Wound care instructions were discussed Icing and elevating techniques were described discussed Medical recommendations Discharge planning: Patient will be discharged home today Time with Patient: Less than 30
--- NOTE | 2017-10-31 11:02 | P.DS ---
Providers Date of admission: 10/30/17 09:22 Expected date of discharge: 10/31/17 Attending physician: Augusto George Consults: 10/30/17 12:23 Consult Physician Routine Consulting Provider: Sherrie Romero Consult Reason/Comments: medical management Do you want consulting provider notified?: Yes Primary care physician: Stated None Hospital Course: Date of admission: 10/30/2014 Date of discharge: 10/31/2017 Admission diagnosis: Status post right total knee arthroplasty Discharge diagnosis: Same Attending physician: Dr. George Surgical procedures: Right total knee arthroplasty Brief history: Patient is a 77-year-old male with a history of progressive primary right knee osteoarthritis. At this point patient has failed conservative treatment measures and has opted to proceed with a elective right total knee arthroplasty. Hospital course: Details of patient's surgery can be found in operative report. Patient tolerated the procedure well and was subsequently transported to orthopedic floor. Patient's orthopeidc and medical care was provided daily. Patient had daily laboratory tests performed for evaluation of overall blood counts. Patient had daily physical therapy to include strengthening range of motion as well as education with walker ambulation. Patient had daily CPM usage as part of their physical therapy program. Patient was treated with Xarelto for their postoperative DVT prophylaxis during their inpatient stay. Patient was noted to have a relatively uneventful postoperative course. Patient reported satisfactory pain control with oral pain medications by postoperative day 0. Patient showed satisfactory progress with physical therapy. Patient moved steadily through the program and had no difficulty meeting the goals by postoperative day 1. Given patient's otherwise satisfactory course and having met physical therapy goals, plan is to discharge patient home on postoperative day 1. Discharge condition/disposition: Patient will be discharged home in stable condition. Discharge medications: Instructions are given on resumption of patient's normal daily medications per primary care recommendation, in addition patient will be prescribed Murdo 5 mg/325 mg, Colace 100 mg . Discharge instructions: 1. Wound care and infection precautions, keep incision dry and covered while showering, no lotions, creams, moisturizers. No soaking, tubs, pools, hottubs. Do not scrub over the incision 2. Weight-bear as tolerated with walker / cane until follow-up. 3. Ice and elevate when necessary. Do not exceed 20 minutes per hour with ice pack. 4. Utilize compression sleeve until seen at first follow up appointment. 5. Visiting nursing care. 6. Home physical therapy including home CPM. 7. Pain meds and anticoagulants per prescription. 8. Pain medication has potential to cause constipation. Increase oral fluid and fiber intake. Contact primary care provider if you have not had a bowel movement within 48 hours after discharge 9. No anti-inflammatory medication until discussed at first post operative visit, this including Motrin, Aleve, Mobic, Diclofenac. 10. Follow up in office at 2 weeks postop with Pedro Shi PA-C 11. Follow up with your primary care doctor 7-10 days after discharge. 12. Contact [facility] with any questions, . Procedures: Right total knee arthroplasty Patient Condition at Discharge: Good Plan - Discharge Summary Discharge Rx Participant: No New Discharge Prescriptions: New Docusate [Colace] 100 mg PO DAILY #30 capsule Hydrocodone/Acetaminophen [Murdo 5-325] 1 - 2 each PO Q6HR PRN #40 tab PRN Reason: Pain Continue Insulin Glargine,Hum.rec.anlog [Lantus Solostar] 30 unit SQ HS amLODIPine 10 mg PO DAILY Simvastatin 40 mg PO HS Omeprazole 20 mg PO DAILY metFORMIN HCL 1,000 mg PO BID Dulaglutide [Trulicity] 1.5 mg SQ TU Rivaroxaban [Xarelto] 20 mg PO DAILY Discharge Medication List Insulin Glargine,Hum.rec.anlog [Lantus Solostar] 30 unit SQ HS 11/20/13 [History ] Omeprazole 20 mg PO DAILY 11/20/13 [History] Simvastatin 40 mg PO HS 11/20/13 [History] amLODIPine 10 mg PO DAILY 11/20/13 [History] metFORMIN HCL 1,000 mg PO BID 06/14/16 [History] Dulaglutide [Trulicity] 1.5 mg SQ TU 04/20/17 [History] Rivaroxaban [Xarelto] 20 mg PO DAILY 04/20/17 [History] Docusate [Colace] 100 mg PO DAILY #30 capsule 10/31/17 [Rx] Hydrocodone/Acetaminophen [Murdo 5-325] 1 - 2 each PO Q6HR PRN #40 tab 10/31/17 [Rx] Follow up Appointment(s)/Referral(s): [facility], [NON-STAFF] - Fred Shi PAC [PHYSICIAN MANGLE CATCHER] - 11/14/17 3:50 pm Activity/Diet/Wound Care/Special Instructions: Orthopedic Discharge Instructions: 1. Wound care and infection precautions, keep incision dry and covered while showering, no lotions, creams, moisturizers. No soaking, pools, hot tubs. Do not scrub over incision. 2. Weight-bear as tolerated with walker / cane until follow-up. 3. Ice and elevate when necessary. Do not exceed 20 minutes per hour with ice pack. 4. Utilize compression sleeve until seen at first follow up appointment. 5. Visiting nursing care. 6. Home physical therapy including home CPM. 7. Pain meds and anticoagulants per prescription. 8. Pain medication has potential to cause constipation. Increase oral fluid and fiber intake. Contact primary care provider if you have not had a bowel movement within 48 hours after discharge. 9. No anti-inflammatory medication until discussed at first post operative visit, this including Motrin, Aleve, Mobic, Diclofenac. 10. Follow up in office at 2 weeks postop with Pedro Shi PA-C 11. Follow up with your primary care doctor 7-10 days after discharge. 12. Contact [facility] with any questions, . Discharge Disposition: HOME WITH HOME HEALTH SERVICES
[2017-10-31 11:26] LABS: Glucose,Whole Blood 199 mg/dL (75-99)
--- NOTE | 2017-10-31 13:12 | P.PN ---
Progress Note - Text 10/31 807am 77-year-old male status post total knee replacement by Dr. George. Patient has an On-Q pump for postop pain control with the solution running at 8 mL an hour, patient has a VAS of 0. Plan to continue On-Q pump infusion.
--- NOTE | 2017-10-31 15:39 | P.CONS ---
History of Present Illness - Reason for Consult Consult date: 10/31/17 medical managment of anticoagulation - History of Present Illness Rocky is a 77 y/o WM well known to me with a h/o Recurrent DVT. He is S/P R TKA for ongoing Osteoarthritis and pain. He is POD 1 for this. He is tolerating a diet. No current CP, pressure, SOB, Nausea, vomiting, etc. He is going home later today if he can manage the stairs. He is a less than well controlled Diabetic with an A1C of 7.4 on his last lab tests. Review of Systems All systems: negative Past Medical History Past Medical History: Diabetes Mellitus, Deep Vein Thrombosis (DVT), GERD/Reflux , Hyperlipidemia, Hypertension, Osteoarthritis (OA) Additional Past Medical History / Comment(s): Recurrent DVT -LEFT LEG, INCARCERATED UMBILICAL HERNIA History of Any Multi-Drug Resistant Organisms: None Reported Past Surgical History: Orthopedic Surgery Additional Past Surgical History / Comment(s): colonoscopy, BLADDER STONE REMOVED, ROBOTIC ASSISTED LAPROSCOPIC INCARCERATED UMBILICAL HERNIA REPAIR W/ MESH, TOTAL RIGHT KNEE 10-30-17 Past Anesthesia/Blood Transfusion Reactions: No Reported Reaction Past Psychological History: No Psychological Hx Reported Smoking Status: Former smoker Past Alcohol Use History: None Reported Additional Past Alcohol Use History / Comment(s): STARTED SMOKING AT AGE 15QUIT AGE 37 SMOKED 1 1/2 PPD Past Drug Use History: None Reported - Past Family History Son(s) Family Medical History: Cancer Additional Family Medical History / Comment(s): LUNG CANCER Mother Family Medical History: Dementia Brother(s) Family Medical History: Cancer Additional Family Medical History / Comment(s): LARYNX CANCER Medications and Allergies Home Medications Medication Instructions Recorded Confirmed Type Insulin Glargine,Hum.rec.anlog 30 unit SQ HS 11/20/13 10/30/17 History [Lantus Solostar] Omeprazole 20 mg PO DAILY 11/20/13 10/30/17 History Simvastatin 40 mg PO HS 11/20/13 10/30/17 History amLODIPine 10 mg PO DAILY 11/20/13 10/30/17 History metFORMIN HCL 1,000 mg PO BID 06/14/16 10/30/17 History Dulaglutide [Trulicity] 1.5 mg SQ TU 04/20/17 10/30/17 History Rivaroxaban [Xarelto] 20 mg PO DAILY 04/20/17 10/30/17 History Docusate [Colace] 100 mg PO DAILY #30 capsule 10/31/17 Rx Hydrocodone/Acetaminophen [[place] 1 - 2 each PO Q6HR PRN #40 tab 10/31/17 Rx 5-325] Allergies Allergy/AdvReac Type Severity Reaction Status Date / Time codeine Allergy Rash/Hives Verified 10/30/17 14:18 Physical Exam Vitals: Vital Signs Temp Pulse Pulse Pulse Resp BP Pulse Ox 10/31/17 14:20 98.7 F 73 16 169/86 93 L 10/31/17 08:03 98.5 F 78 16 168/80 96 10/31/17 00:00 99.2 F 78 14 158/80 95 10/30/17 19:23 97.8 F 79 18 128/67 94 L 10/30/17 16:00 69 16 172/95 93 L 10/30/17 15:45 70 16 162/89 93 L 10/30/17 15:30 75 16 161/98 92 L Intake and Output 10/31/17 10/31/17 10/31/17 06:59 14:59 22:59 Intake Total 300 Output Total 2300 900 Balance -2300 -600 Intake: Oral 300 Output: Drainage 350 Right Knee 350 Urine 1950 900 Uretheral (Galeano) 1500 200 Stool 0 Other: Voiding Method Indwelling Catheter Indwelling Catheter # Voids 2 Weight 87.54 kg 87.54 kg - Constitutional General appearance: average body habitus - EENT Eyes: PERRLA ENT: normal oropharynx - Neck Neck: no lymphadenopathy, normal ROM, no thyromegaly Thyroid: bilateral: normal size - Respiratory Respiratory: bilateral: CTA - Cardiovascular Rhythm: regular Heart sounds: normal: S1, S2 - Gastrointestinal General gastrointestinal: no hepatomegaly, normal bowel sounds, no splenomegaly , no tenderness - Integumentary Integumentary: normal - Neurologic Neurologic: CNII-XII intact - Psychiatric Psychiatric: A&O x's 3, intact judgment & insight Results CBC & Chem 7: 10/31/17 06:35 10/31/17 06:35 Labs: Abnormal Lab Results - Last 24 Hours (Table) 10/30/17 10/30/17 10/31/17 Range/Units 16:38 20:48 06:35 RBC 3.89 L (4.30-5.90) m/uL Hgb 11.7 L (13.0-17.5) gm/dL Hct 34.6 L (39.0-53.0) % Lymphocytes # 0.9 L (1.0-4.8) k/uL Glucose (74-99) mg/dL POC Glucose (mg/dL) 148 H 185 H (75-99) mg/dL Total Protein (6.3-8.2) g/dL 10/31/17 10/31/17 10/31/17 Range/Units 06:35 06:50 11:05 RBC (4.30-5.90) m/uL Hgb (13.0-17.5) gm/dL Hct (39.0-53.0) % Lymphocytes # (1.0-4.8) k/uL Glucose 176 H (74-99) mg/dL POC Glucose (mg/dL) 187 H 199 H (75-99) mg/dL Total Protein 5.9 L (6.3-8.2) g/dL Assessment and Plan (1) Type 2 diabetes mellitus with hyperglycemia Current Visit: Yes Status: Chronic Code(s): E11.65 - TYPE 2 DIABETES MELLITUS WITH HYPERGLYCEMIA SNOMED Code(s): 170005003555074 (2) Arthrodesis status Current Visit: Yes Status: Acute Code(s): Z98.1 - ARTHRODESIS STATUS SNOMED Code(s): 462636617 (3) DVT (deep venous thrombosis) Current Visit: Yes Status: Chronic Code(s): I82.409 - ACUTE EMBOLISM AND THOMBOS UNSP DEEP VN UNSP LOWER EXTREMITY SNOMED Code(s): 041581829 (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 Current Visit: Yes Status: Chronic Code(s): Z79.01 - LONG-TERM (CURRENT) USE OF ANTICOAGULANTS SNOMED Code(s): 177260650 (5) Essential (primary) hypertension Current Visit: Yes Status: Chronic Code(s): I10 - ESSENTIAL (PRIMARY) HYPERTENSION SNOMED Code(s): 49965970 (6) Mixed hyperlipidemia Current Visit: Yes Status: Chronic Code(s): E78.2 - MIXED HYPERLIPIDEMIA SNOMED Code(s): 981788751 (7) GERD (gastroesophageal reflux disease) Current Visit: Yes Status: Chronic Code(s): K21.9 - GASTRO-ESOPHAGEAL REFLUX DISEASE WITHOUT ESOPHAGITIS SNOMED Code(s): 638560647 (8) Osteoarthritis of right knee Current Visit: Yes Status: Acute Code(s): M17.11 - UNILATERAL PRIMARY OSTEOARTHRITIS, RIGHT KNEE SNOMED Code(s): 744638872796165 Plan: I will restart his home meds. Resume Xarelto for DVT and prophylaxis after TKA. We will reevaluate his DM2 in the office. Thank you for allowing me to see this patient.
[2017-10-31 16:59] LABS: Glucose,Whole Blood 208 mg/dL (75-99)
[2017-10-31 20:36] LABS: Glucose,Whole Blood 247 mg/dL (75-99)
[2017-10-31] MEDS: ATORVASTATIN 20 MG TAB PO SCH (21:02)
[2017-10-31] MEDS: SENNOSIDES-DOCUSATE SODIUM 1 EACH TAB PO SCH (21:03)
[2017-10-31] MEDS: INSULIN DETEMIR 100 UNIT/ML 10 ML VIAL SQ SCH (21:03)
[2017-11-01 06:56] LABS: Glucose,Whole Blood 202 mg/dL (75-99)
[2017-11-01 06:59] VITALS: BP 159/80; PULSE 79; RESP 14; TEMP 99
[2017-11-01] MEDS: LACTATED RINGERS 1,000 ML IV SCH (08:37)
[2017-11-01] MEDS: INSULIN ASPART 100 UNIT/ML 1 ML 10 ML VIAL SQ SCH (08:52)
[2017-11-01] MEDS: amLODIPine 10 MG TAB PO SCH (08:52)
[2017-11-01] MEDS: RIVAROXABAN 10 MG TAB PO SCH (08:52)
[2017-11-01] MEDS: PANTOPRAZOLE 40 MG TABLET PO SCH (08:52)
--- NOTE | 2017-11-01 11:00 | P.PN ---
Mamie Hidalgo is a 77 y/o WM well known to me with a h/o Recurrent DVT. He is S/P R TKA for ongoing Osteoarthritis and pain. He is POD 1 for this. He is tolerating a diet. No current CP, pressure, SOB, Nausea, vomiting, etc. He is going home later today if he can manage the stairs. He is a less than well controlled Diabetic with an A1C of 7.4 on his last lab tests. 11/01/2017: Due to excess of nausea yesterday, his discharge was delayed. He reports they Brian of those symptoms. He currently denies any chest pains, pressures, shortness breath, nausea or vomiting now. He is tolerating regular diet. Scheduled to go home today. Objective - Vital Signs Vital signs: Vital Signs Temp 99 F 11/01/17 06:56 Pulse 79 11/01/17 06:56 Resp 14 11/01/17 06:56 BP 159/80 11/01/17 06:56 Pulse Ox 98 11/01/17 06:56 Intake & Output 10/31/17 11/01/17 11/01/17 18:59 06:59 18:59 Intake Total 650 1280 Output Total 900 0 Balance -250 1280 Weight 87.54 kg Intake: Oral 650 1280 Output: Urine 900 Uretheral (Galeano) 200 Stool 0 Other: Voiding Method Indwelling Catheter Toilet # Voids 2 4 - Exam General: The patient is awake and alert, in no distress, and does not appear acutely ill. Neck: The neck is supple, there is no thyromegaly, lymphadenopathy, tenderness or JVD. Cardiovascular: S1S2 is normal, There is a regular rate and rhythm. No murmur, rub or gallop is appreciated. Respiratory: Lungs are clear to auscultation bilaterally, respirations are non -labored, breath sounds are equal. Gastrointestinal: Soft, non-distended, non-tender abdomen without masses or organomegaly noted. There is no rebound or guarding present. Bowel sounds are unremarkable. Musculoskeletal: Normal ROM, no tenderness, There is +1 edema to the right leg only.. There is no calf tenderness or swelling. No cords were appreciated. Neurological: CN II-XII intact, there are no obvious motor or sensory deficits. Coordination appears grossly intact. Speech is normal. Skin: Skin is warm and dry and no rashes or lesions are noted. Incision site is clean dry and intact with an ABT overlying the right side. - Labs CBC & Chem 7: 10/31/17 06:35 10/31/17 06:35 Labs: Abnormal Lab Results - Last 24 Hours (Table) 10/31/17 10/31/17 10/31/17 Range/Units 11:05 16:55 20:33 POC Glucose (mg/dL) 199 H 208 H 247 H (75-99) mg/dL 11/01/17 Range/Units 06:51 POC Glucose (mg/dL) 202 H (75-99) mg/dL Assessment and Plan (1) Type 2 diabetes mellitus with hyperglycemia Current Visit: Yes Status: Chronic Code(s): E11.65 - TYPE 2 DIABETES MELLITUS WITH HYPERGLYCEMIA SNOMED Code(s): 404412071115393 (2) Arthrodesis status Current Visit: Yes Status: Acute Code(s): Z98.1 - ARTHRODESIS STATUS SNOMED Code(s): 588646747 (3) DVT (deep venous thrombosis) Current Visit: Yes Status: Chronic Code(s): I82.409 - ACUTE EMBOLISM AND THOMBOS UNSP DEEP VN UNSP LOWER EXTREMITY SNOMED Code(s): 986680347 (4) jail (current) use of anticoagulants Current Visit: Yes Status: Chronic Code(s): Z79.01 - SOAP SLABBER (CURRENT) USE OF ANTICOAGULANTS SNOMED Code(s): 907413365 (5) Essential (primary) hypertension Current Visit: Yes Status: Chronic Code(s): I10 - ESSENTIAL (PRIMARY) HYPERTENSION SNOMED Code(s): 53333554 (6) Mixed hyperlipidemia Current Visit: Yes Status: Chronic Code(s): E78.2 - MIXED HYPERLIPIDEMIA SNOMED Code(s): 854309419 (7) GERD (gastroesophageal reflux disease) Current Visit: Yes Status: Chronic Code(s): K21.9 - GASTRO-ESOPHAGEAL REFLUX DISEASE WITHOUT ESOPHAGITIS SNOMED Code(s): 798434125 (8) Osteoarthritis of right knee Current Visit: Yes Status: Acute Code(s): M17.11 - UNILATERAL PRIMARY OSTEOARTHRITIS, RIGHT KNEE SNOMED Code(s): 522027727924825 Plan: He appears to be improved and ready for discharge at this time. He'll continue on his current medications for diabetes hypertension and DVT treatment. He will need further evaluation regarding his uncontrolled diabetes in the office.
--- NOTE | 2017-11-01 11:12 | P.PN ---
Progress Note - Text Progress Note Date: 11/01/17 Patient is seen sitting up in chair reports he is doing well. Patient has some knee pain but it is well tolerated with the pain medication. Patient is ambulating well with his walker. Patient is requesting discharged today. Incision stable. Negative Jason/negative Homans. Distal neurovascular exam intact. Impression: Status post right total knee arthroplasty Plan: Patient will be discharged to home today with appropriate discharge instructions
== END 2017-11-01 11:55 | disposition home health service (06) | DRG 470 ==
LOC: 2ORMAIN 09:22 → 3SUR 12:35
PROVIDERS: ADMIT Orthopaedic Surgery; ATTEND Orthopaedic Surgery
PROC: 0SRC0J9 Replacement of Right Knee Joint with Synthetic Substitute, Cemented, Open Approach (ICD-10-PCS; principal; 2017-10-30 11:00)
DX: M17.11 Unilateral primary osteoarthritis, right knee (principal); E11.65 Type 2 diabetes mellitus with hyperglycemia; R11.0 Nausea; E78.2 Mixed hyperlipidemia; I10 Essential (primary) hypertension; K21.9 Gastro-esophageal reflux disease without esophagitis; Z79.84 Long term (current) use of oral hypoglycemic drugs; Z79.01 Long term (current) use of anticoagulants; Z79.899 Other long term (current) drug therapy; Z98.1 Arthrodesis status; Z88.5 Allergy status to narcotic agent; Z87.891 Personal history of nicotine dependence; Z86.718 Personal history of other venous thrombosis and embolism; Z80.2 Family history of malignant neoplasm of other respiratory and intrathoracic organs; Z80.1 Family history of malignant neoplasm of trachea, bronchus and lung; Z81.8 Family history of other mental and behavioral disorders
CPT/HCPCS: 80053; 85025; 88300

== ENCOUNTER → 2018-03-07 | Outpatient (CLI) | payer MEDICARE ==
--- NOTE | 2018-03-08 10:29 | ECHOF ---
Referral Reason:R01.0 Cardiac Murmur MEASUREMENTS -------- HEIGHT: 175.3 cm WEIGHT: 86.2 kg BP: 159/82 RVIDd: 3.2 cm (< 3.3) IVSd: 1.2 cm (0.6 - 1.1) LVIDd: 3.4 cm (3.9 - 5.3) LVPWd: 1.2 cm (0.6 - 1.1) IVSs: 1.8 cm LVIDs: 2.3 cm LVPWs: 1.8 cm LA Diam: 3.5 cm (2.7 - 3.8) LAESV Index (A-L): 25.71 ml/m Ao Diam: 3.2 cm (2.0 - 3.7) AV Cusp: 1.6 cm (1.5 - 2.6) MV EXCURSION: 13.015 mm (> 18.000) MV EF SLOPE: 53 mm/s (70 - 150) EPSS: 0.7 cm MV E Christiano: 0.90 m/s MV DecT: 179 ms MV A Christiano: 1.00 m/s MV E/A Ratio: 0.90 AV maxP.85 mmHg AV meanP.38 mmHg AR PHT: 434 ms RAP: 5.00 mmHg RVSP: 29.59 mmHg FINDINGS -------- Sinus rhythm. This was a technically good study. The left ventricular size is normal. There is borderline concentric left ventricular hypertrophy. Overall left ventricular systolic function is normal with, an EF between 55 - 60 %. The right ventricle is normal in size. Normal LA size by volume 22+/-6 ml/m2. The right atrium is normal in size. Aortic valve is trileaflet and is moderately thickened. There is mild aortic regurgitation. There is mild aortic stenosis present. Peak/mean gradient across the Aortic Valve is 18.85mmHg / 9.38mmH g. Mild mitral annular calcification present. Mild tricuspid regurgitation present. Right ventricular systolic pressure is normal at < 35 mmHg. The right ventricular systolic pressure, as measured by Doppler, is 29.59mmHg. There is no pulmonic regurgitation present. The aortic root size is normal. Normal inferior vena cava with normal inspiratory collapse consistent with estimated right atrial pre ssure of 5 mmHg. There is no pericardial effusion. CONCLUSIONS -------- 1. Sinus rhythm. 2. This was a technically good study. 3. The left ventricular size is normal. 4. There is borderline concentric left ventricular hypertrophy. 5. Overall left ventricular systolic function is normal with, an EF between 55 - 60 %. 6. The right ventricle is normal in size. 7. Normal LA size by volume 22+/-6 ml/m2. 8. The right atrium is normal in size. 9. Aortic valve is trileaflet and is moderately thickened. 10. There is mild aortic regurgitation. 11. There is mild aortic stenosis present. 12. Peak/mean gradient across the Aortic Valve is 18.85mmHg / 9.38mmHg. 13. Mild mitral annular calcification present. 14. Mild tricuspid regurgitation present. 15. Right ventricular systolic pressure is normal at < 35 mmHg. 16. The right ventricular systolic pressure, as measured by Doppler, is 29.59mmHg. 17. There is no pulmonic regurgitation present. 18. The aortic root size is normal. 19. Normal inferior vena cava with normal inspiratory collapse consistent with estimated right atrial pressure of 5 mmHg. 20. There is no pericardial effusion. FAMILY LIVING EDUCATOR: Mariah Aguirre RDCS
== END | disposition home or self-care (01) ==
LOC: RADECHMAIN 12:56
PROVIDERS: ATTEND Family Medicine
DX: I08.3 Combined rheumatic disorders of mitral, aortic and tricuspid valves (principal)
CPT/HCPCS: 93306

== ENCOUNTER 2018-10-03 10:55 | Emergency (ER) | payer MEDICARE ==
[2018-10-03] MEDS ORDERED: SODIUM CHLORIDE 0.9% 1,000 ML IV STA ×2 (11:38)
[2018-10-03] MEDS ORDERED: ONDANSETRON 4 MG/2 ML VIAL IVP STA (11:56)
[2018-10-03 12:16] LABS: Basophils % (A) 0 %; Eosinophils # (A) 0.1 k/uL (0-0.7); Eosinophils % (A) 1 %; HGB 12.4 gm/dL (13.0-17.5); Lymphocytes % (A) 13 %; MCH 28.6 pg (25.0-35.0); MCHC 33.5 g/dL (31.0-37.0); MCV 85.5 fL (80.0-100.0); Mean Platelet Volume 7.6; Monocytes # (A) 0.3 k/uL (0-1.0); Monocytes % (A) 3 %; Neutrophils # (A) 6.4 k/uL (1.3-7.7); Neutrophils % (A) 82 %; Platelet Count 157 k/uL (150-450); RBC 4.33 m/uL (4.30-5.90); RDW 14.9 % (11.5-15.5); WBC 7.9 k/uL (3.8-10.6)
--- NOTE | 2018-10-03 12:32 | ED ---
Nausea/Vomiting/Diarrhea HPI - General Chief complaint: Nausea/Vomiting/Diarrhea Stated complaint: VOMITING Time Seen by Provider: 10/03/18 11:25 Source: patient, RN notes reviewed, old records reviewed Mode of arrival: wheelchair Limitations: no limitations - History of Present Illness Initial comments: Patient is a 78-year-old male who presents emergency Department today with complaints of nausea and vomiting starting in a.m. Patient reports his been dry heaving. He complains of generalized weakness and dizziness and head feeling full. Patient has a history of diabetes hypertension and hyperlipidemia. He denies any previous cardiac stents. He states that he has no pain at this time. He denies any shortness of breath. - Related Data Home Medications Medication Instructions Recorded Confirmed Insulin Glargine,Hum.rec.anlog 30 unit SQ HS 11/20/13 10/03/18 [Lantus Solostar] Omeprazole 20 mg PO DAILY 11/20/13 10/03/18 Simvastatin 40 mg PO HS 11/20/13 10/03/18 amLODIPine 10 mg PO DAILY 11/20/13 10/03/18 metFORMIN HCL 1,000 mg PO BID 06/14/16 10/03/18 Dulaglutide [Trulicity] 1.5 mg SQ TU 04/20/17 10/03/18 Rivaroxaban [Xarelto] 20 mg PO DAILY 04/20/17 10/03/18 Previous Rx's Medication Instructions Recorded Meclizine [Antivert] 25 mg PO TID #20 tab 10/03/18 Ondansetron Odt [Zofran Odt] 4 mg PO Q8HR PRN #20 tab 10/03/18 methylPREDNISolone Dose Pack 4 mg PO DIRECTED #21 package 10/03/18 [Medrol Dose Pack] Allergies Allergy/AdvReac Type Severity Reaction Status Date / Time codeine Allergy Rash/Hives Verified 10/03/18 12:12 Review of Systems ROS Statement: Those systems with pertinent positive or pertinent negative responses have been documented in the HPI. ROS Other: All systems not noted in ROS Statement are negative. Past Medical History Past Medical History: Diabetes Mellitus, Deep Vein Thrombosis (DVT), GERD/Reflux, Hyperlipidemia, Hypertension, Osteoarthritis (OA) Additional Past Medical History / Comment(s): Recurrent DVT -LEFT LEG, INCARCERATED UMBILICAL HERNIA History of Any Multi-Drug Resistant Organisms: None Reported Past Surgical History: Orthopedic Surgery Additional Past Surgical History / Comment(s): colonoscopy, BLADDER STONE REMOVED, ROBOTIC ASSISTED LAPROSCOPIC INCARCERATED UMBILICAL HERNIA REPAIR W/MESH, TOTAL RIGHT KNEE 10-30- Past Anesthesia/Blood Transfusion Reactions: No Reported Reaction Past Psychological History: No Psychological Hx Reported Smoking Status: Former smoker Past Alcohol Use History: None Reported Past Drug Use History: None Reported - Past Family History Son(s) Family Medical History: Cancer Additional Family Medical History / Comment(s): LUNG CANCER Mother Family Medical History: Dementia Brother(s) Family Medical History: Cancer Additional Family Medical History / Comment(s): LARYNX CANCER General Exam - General Exam Comments Initial Comments: This is a 78-year-old male. Limitations: no limitations General appearance: alert, in no apparent distress Head exam: Present: atraumatic, normocephalic, normal inspection Eye exam: Present: normal appearance, PERRL, EOMI. Absent: scleral icterus, conjunctival injection, periorbital swelling ENT exam: Present: normal exam, mucous membranes moist Neck exam: Present: normal inspection. Absent: tenderness, meningismus, lymphadenopathy Respiratory exam: Present: normal lung sounds bilaterally. Absent: respiratory distress, wheezes, rales, rhonchi, stridor Cardiovascular Exam: Present: regular rate, normal rhythm, normal heart sounds. Absent: systolic murmur, diastolic murmur, rubs, gallop, clicks GI/Abdominal exam: Present: soft, normal bowel sounds. Absent: distended, tenderness, guarding, rebound, rigid Extremities exam: Present: normal inspection, full ROM, normal capillary refill. Absent: tenderness, pedal edema, joint swelling, calf tenderness Back exam: Present: normal inspection Neurological exam: Present: alert, oriented X3, CN II-XII intact Psychiatric exam: Present: normal affect, normal mood Skin exam: Present: warm, dry, intact, normal color. Absent: rash Course Vital Signs 10/03/18 10/03/18 10/03/18 11:08 12:30 12:40 Temperature 98.0 F Pulse Rate 89 71 68 Respiratory 18 18 16 Rate Blood Pressure 186/83 164/83 145/85 O2 Sat by Pulse 97 94 L 94 L Oximetry 10/03/18 10/03/18 10/03/18 13:10 13:20 13:30 Temperature Pulse Rate 73 73 Respiratory Rate Blood Pressure 145/85 145/85 145/85 O2 Sat by Pulse 95 92 L Oximetry 10/03/18 10/03/18 10/03/18 13:40 13:50 14:00 Temperature Pulse Rate 68 70 73 Respiratory Rate Blood Pressure 160/89 160/89 160/89 O2 Sat by Pulse 91 L 93 L 89 L Oximetry 10/03/18 10/03/18 10/03/18 14:10 14:20 14:30 Temperature Pulse Rate 84 76 78 Respiratory Rate Blood Pressure 140/91 140/91 140/91 O2 Sat by Pulse 95 93 L Oximetry 10/03/18 10/03/18 14:40 14:50 Temperature 98 F Pulse Rate 77 78 Respiratory Rate Blood Pressure 147/90 155/99 O2 Sat by Pulse 90 L 93 L Oximetry - Reevaluation(s) Reevaluation #1: 10/03/18 15:44 Patient is reevaluated this time after receiving meclizine. He states is feeling much better and would like to be discharged home. Discussed the CT shows chronic small vessel ischemia with no acute changes. Repeat neuro exam shows no acute deficits or changes. Medical Decision Making - Medical Decision Making 78-year-old male concerns from today with onset of nausea and vomiting and. Here in the emergency department dry heaving. He states he feels generally weak from vomiting his son. He complains of dizziness, room spinning. Patient was given IV fluids and nausea medicine. He is feeling better but still continued to complain of some head fullness. After more fluids the Patient is given some meclizine he feels much better. Treatment times CT of the brain was completed w hich showed of his chronic small vessel ischemia but no acute changes. Patient is no focal or lateralizing neurological findings. Patient feels much better and states would like her discharged home. I discussed proper follow-up with primary care doctor. At this time we'll treat the Patient with meclizine steroids and Zofran. - Lab Data Result diagrams: 10/03/18 11:57 10/03/18 11:57 Lab Results 10/03/18 10/03/18 10/03/18 Range/Units 11:57 11:57 11:57 WBC 7.9 (3.8-10.6) k/uL RBC 4.33 (4.30-5.90) m/uL Hgb 12.4 L (13.0-17.5) gm/dL Hct 37.0 L (39.0-53.0) % MCV 85.5 (80.0-100.0) fL MCH 28.6 (25.0-35.0) pg MCHC 33.5 (31.0-37.0) g/dL RDW 14.9 (11.5-15.5) % Plt Count 157 (150-450) k/uL Neutrophils % 82 % Lymphocytes % 13 % Monocytes % 3 % Eosinophils % 1 % Basophils % 0 % Neutrophils # 6.4 (1.3-7.7) k/uL Lymphocytes # 1.0 (1.0-4.8) k/uL Monocytes # 0.3 (0-1.0) k/uL Eosinophils # 0.1 (0-0.7) k/uL Basophils # 0.0 (0-0.2) k/uL Sodium 139 (137-145) mmol/L Potassium 4.2 (3.5-5.1) mmol/L Chloride 103 (98-107) mmol/L Carbon Dioxide 26 (22-30) mmol/L Anion Gap 10 mmol/L BUN 15 (9-20) mg/dL Creatinine 0.66 (0.66-1.25) mg/dL Est GFR (CKD-EPI)AfAm >90 (>60 ml/min/1.73 sqM) Est GFR (CKD-EPI)NonAf >90 (>60 ml/min/1.73 sqM) Glucose 232 H (74-99) mg/dL Calcium 9.6 (8.4-10.2) mg/dL Total Bilirubin 0.7 (0.2-1.3) mg/dL AST 30 (17-59) U/L ALT 30 (21-72) U/L Alkaline Phosphatase 55 (38-126) U/L Troponin I <0.012 (0.000-0.034) ng/mL Total Protein 7.5 (6.3-8.2) g/dL Albumin 4.8 (3.5-5.0) g/dL Amylase 72 (30-110) U/L Lipase 227 (23-300) U/L Urine Color Urine Appearance (Clear) Urine pH (5.0-8.0) Ur Specific [place] (1.001-1.035) Urine Protein (Negative) Urine Glucose (UA) (Negative) Urine Ketones (Negative) Urine Blood (Negative) Urine Nitrite (Negative) Urine Bilirubin (Negative) Urine Urobilinogen (<2.0) mg/dL Ur Leukocyte Esterase (Negative) Urine WBC (0-5) /hpf Ur Squamous Epith Cells (0-4) /hpf Urine Mucus (None) /hpf 10/03/18 Range/Units 13:15 WBC (3.8-10.6) k/uL RBC (4.30-5.90) m/uL Hgb (13.0-17.5) gm/dL Hct (39.0-53.0) % MCV (80.0-100.0) fL MCH (25.0-35.0) pg MCHC (31.0-37.0) g/dL RDW (11.5-15.5) % Plt Count (150-450) k/uL Neutrophils % % Lymphocytes % % Monocytes % % Eosinophils % % Basophils % % Neutrophils # (1.3-7.7) k/uL Lymphocytes # (1.0-4.8) k/uL Monocytes # (0-1.0) k/uL Eosinophils # (0-0.7) k/uL Basophils # (0-0.2) k/uL Sodium (137-145) mmol/L Potassium (3.5-5.1) mmol/L Chloride (98-107) mmol/L Carbon Dioxide (22-30) mmol/L Anion Gap mmol/L BUN (9-20) mg/dL Creatinine (0.66-1.25) mg/dL Est GFR (CKD-EPI)AfAm (>60 ml/min/1.73 sqM) Est GFR (CKD-EPI)NonAf (>60 ml/min/1.73 sqM) Glucose (74-99) mg/dL Calcium (8.4-10.2) mg/dL Total Bilirubin (0.2-1.3) mg/dL AST (17-59) U/L ALT (21-72) U/L Alkaline Phosphatase (38-126) U/L Troponin I (0.000-0.034) ng/mL Total Protein (6.3-8.2) g/dL Albumin (3.5-5.0) g/dL Amylase (30-110) U/L Lipase (23-300) U/L Urine Color Yellow Urine Appearance Clear (Clear) Urine pH 7.5 (5.0-8.0) Ur Specific [place] 1.014 (1.001-1.035) Urine Protein 1+ H (Negative) Urine Glucose (UA) 3+ H (Negative) Urine Ketones Negative (Negative) Urine Blood Negative (Negative) Urine Nitrite Negative (Negative) Urine Bilirubin Negative (Negative) Urine Urobilinogen <2.0 (<2.0) mg/dL Ur Leukocyte Esterase Negative (Negative) Urine WBC 2 (0-5) /hpf Ur Squamous Epith Cells <1 (0-4) /hpf Urine Mucus Rare H (None) /hpf 10/03/18 12:32 EKG shows sinus rhythm with PACs otherwise normal EKG. Ventricular rate of 91 bpm. AR interval is 148 ms. QRS duration is 90 ms. QT QTc is 370/455 ms. - Radiology Data Radiology results: report reviewed Age-related atrophy and chronic small vessel ischemic disease without acute injury cranial processing this time. Disposition Clinical Impression: Nausea & vomiting, Vertigo Disposition: HOME SELF-CARE Condition: Good Instructions (If sedation given, give patient instructions): Acute Nausea and Vomiting (ED), Cervical Strain (ED), Vertigo (ED) Additional Instructions: Patient is advised to follow-up with her primary care doctor within the next 1-2 days. Return to the emergency department if any alarming signs or symptoms occur. Prescriptions: Meclizine [Antivert] 25 mg PO TID #20 tab methylPREDNISolone Dose Pack [Medrol Dose Pack] 4 mg PO DIRECTED #21 package Ondansetron Odt [Zofran Odt] 4 mg PO Q8HR PRN #20 tab PRN Reason: Nausea Is patient prescribed a controlled substance at d/c from ED?: No Referrals: Lexa Aguilar MD [Primary Care Provider] - 1-2 days Time of Disposition: 15:46
[2018-10-03 12:37] LABS: ALT 30 U/L (21-72); AST 30 U/L (17-59); Albumin 4.8 g/dL (3.5-5.0); Alkaline Phosphatase 55 U/L (38-126); Amylase 72 U/L (30-110); Anion Gap 10 mmol/L; Blood Urea Nitrogen 15 mg/dL (9-20); Calcium 9.6 mg/dL (8.4-10.2); Carbon Dioxide 26 mmol/L (22-30); Chloride 103 mmol/L (98-107); Glucose 232 mg/dL (74-99); Lipase 227 U/L (23-300); Potassium 4.2 mmol/L (3.5-5.1); Sodium 139 mmol/L (137-145); Total Bilirubin 0.7 mg/dL (0.2-1.3); Total Protein 7.5 g/dL (6.3-8.2)
--- NOTE | 2018-10-03 13:17 | XR ---
EXAMINATION TYPE: XR chest 2V DATE OF EXAM: 10/03/2018 COMPARISON: CXR from 10/18/2017. HISTORY: Vomiting and chest pain. TECHNIQUE: Frontal and lateral views of the chest are obtained. FINDINGS: There is chronic emphysematous change without suspicious focal air space opacity, pleural effusion, or pneumothorax seen. The cardiac silhouette size is within normal limits with atheroscler otic change in the aortic knob. There is multilevel spurring in the thoracic spine seen. IMPRESSION: Chronic emphysematous change without acute pulmonary process.
--- NOTE | 2018-10-03 13:19 | XR ---
EXAMINATION TYPE: XR KUB DATE OF EXAM: 10/03/2018 1:11 PM CLINICAL HISTORY: Vomiting and pain. TECHNIQUE: Single upright KUB image of the abdomen is obtained. COMPARISON: None. FINDINGS: Overlying EKG leads are seen. There is some paucity of bowel gas. Scattered gas is seen in non-distended small bowel loops. There is slightly prominent gas-filled bowel loops in the midabdomen extending to the right of midline. Gas and fecal material is seen in non-distended colon. Vascular calcification overlies the left upper quadrant and bilateral pelvic region. There is dextro convex scoliotic curvature centered L3 level with mild to moderate spurring L2-L3 level. Lung bases a re clear. No pneumoperitoneum is present. Entire pelvis is not imaged. IMPRESSION: Overall nonobstructive bowel gas pattern.
[2018-10-03 13:40] LABS: Appearance,Urine Clear (Clear); Bilirubin,Urine Negative (Negative); Blood,Urine Negative (Negative); Color,Urine Yellow; Glucose,Urine (UA) 3+ (Negative); Ketones,Urine Negative (Negative); Leukocyte Esterase,Urine Negative (Negative); Mucus,Urine Rare /hpf; Nitrite,Urine Negative (Negative); PH, Urine 7.5 (5.0-8.0); Protein,Urine 1+ (Negative); Specific Gravity,Urine 1.014 (1.001-1.035); Squamous Epithelial Cell,Urine <1 /hpf (0-4); Urobilinogen,Urine <2.0 mg/dL (<2.0); WBC,Urine 2 /hpf (0-5)
[2018-10-03] MEDS ORDERED: MECLIZINE 12.5 MG TAB PO STA (14:29)
[2018-10-03 14:49] VITALS: RESP 16
[2018-10-03 14:52] VITALS: TEMP 98
--- NOTE | 2018-10-03 15:10 | CT ---
EXAMINATION TYPE: CT brain wo con DATE OF EXAM: 10/03/2018 COMPARISON: None HISTORY: Dizziness, visual disturbance CT DLP: 1172.[address] of the brain was performed. The ventricles, basal cisterns and sulci overlying the cerebral convexities demonstrate mild enlargem ent. There is no evidence for intracranial hemorrhage or sulcal effacement. There is decreased attenuation about the periventricular white matter and deep white matter of both c erebral hemispheres, compatible with chronic small vessel ischemia. Differential diagnosis does inclu de demyelination. No mass effects are seen.No midline shift. Osseous calvarium is intact. If symptoms persist consider MRI. IMPRESSION: 1. Age related atrophic and chronic small vessel ischemic change without acute intracranial process s een at this time.
[2018-10-03 16:28] VITALS: BP 152/92; PULSE 82
== END 2018-10-03 16:29 | disposition home or self-care (01) ==
LOC: SUPCPDRO 10:55 → EC 10:55
DX: R11.2 Nausea with vomiting, unspecified (principal); R42 Dizziness and giddiness; R53.1 Weakness; I67.82 Cerebral ischemia; E11.9 Type 2 diabetes mellitus without complications; I10 Essential (primary) hypertension; E78.5 Hyperlipidemia, unspecified; K21.9 Gastro-esophageal reflux disease without esophagitis; M19.90 Unspecified osteoarthritis, unspecified site; Z86.718 Personal history of other venous thrombosis and embolism; Z87.19 Personal history of other diseases of the digestive system; Z87.891 Personal history of nicotine dependence; Z98.890 Other specified postprocedural states; Z96.651 Presence of right artificial knee joint; Z79.01 Long term (current) use of anticoagulants; Z79.4 Long term (current) use of insulin; Z79.899 Other long term (current) drug therapy; Z88.5 Allergy status to narcotic agent
CPT/HCPCS: 36415; 93005; 80053; 82150; 83690; 84484; 85025; 81001; 71046; 74018; 70450; 99285; 96374; 96361 ×3; J2405

== ENCOUNTER → 2021-08-16 | Outpatient (CLI) | payer MEDICARE | END | disposition home or self-care (01) | LOC: LABWHC1 11:04 | PROVIDERS: ATTEND Urology | DX: R97.20 Elevated prostate specific antigen [PSA] (principal) | CPT/HCPCS: 36415; 84153 ==

== ENCOUNTER 2022-07-06 07:29 | Day surgery (SDC) | payer MEDICARE ==
[~2022-07-06 07:29] MED LIST changes: -ACETAMINOPHEN TAB 500 MG TAB PO ONE; -FAMOTIDINE 20 MG/2 ML VIAL IV PRN; -LIDOCAINE 1% 20 ML VIAL (10MG/ML) FOR IV START INTRADERMA PRN; +LIDOCAINE 2% INJ 20 MG/ML (2 ML VIAL) ONE; -MELOXICAM 7.5 MG TAB PO ONE; -MORPHINE SULFATE 4 MG/ML SYRINGE IV PRN; -ONDANSETRON 4 MG/2 ML VIAL IVP ONE; +PROPOFOL 10 MG/ML 20 ML VIAL IV ONE; -TRANEXAMIC ACID 1,000 MG in SODIUM CHLORIDE 0.9% 50 ML IVPB ONE; -ceFAZolin IN SWFI 2 GM/20 ML SYRINGE IVP ONE
[2022-07-06] MEDS ORDERED: LACTATED RINGERS 1,000 ML IV SCH (08:01)
[2022-07-06] MEDS ORDERED: LIDOCAINE 1% (10MG/ML) FOR IV START INTRADERMA PRN (08:01)
[2022-07-06 08:18] LABS: Glucose,Whole Blood 98 mg/dL (70-110)
[2022-07-06 08:22] VITALS: RESP 16; TEMP 97.9
--- NOTE | 2022-07-06 08:34 | P.GSHP ---
History of Present Illness H&P Date: 07/06/22 Chief Complaint: Screening colonoscopy, GERD This 82-year-old male presents today for screening colonoscopy and EGD. Patient had some mild GERD symptoms. Past Medical History Past Medical History: Diabetes Mellitus, Deep Vein Thrombosis (DVT), GERD/Reflux, Hyperlipidemia, Hypertension, Osteoarthritis (OA) Additional Past Medical History / Comment(s): Recurrent DVT -LEFT LEG, INCARCERATED UMBILICAL HERNIA, anemia History of Any Multi-Drug Resistant Organisms: ESBL, MRSA Date of last positivie culture/infection: 07/06/21 ESBL; 12/11/07-MRSA MDRO Source:: Urine-ESBL; Source unknown-MRSA Past Surgical History: Orthopedic Surgery Additional Past Surgical History / Comment(s): colonoscopy, BLADDER STONE REMOVED, ROBOTIC ASSISTED LAPROSCOPIC INCARCERATED UMBILICAL HERNIA REPAIR W/MESH, TOTAL RIGHT KNEE 10-30-17, RIGHT TOTAL HIP,UTI Past Anesthesia/Blood Transfusion Reactions: No Reported Reaction, Motion Sickness Smoking Status: Former smoker - Past Family History Son(s) Family Medical History: Cancer Additional Family Medical History / Comment(s): LUNG CANCER Mother Family Medical History: Dementia Brother(s) Family Medical History: Cancer Additional Family Medical History / Comment(s): LARYNX CANCER Medications and Allergies Home Medications Medication Instructions Recorded Confirmed Type Insulin Glargine,Hum.rec.anlog 30 unit SQ 11/20/13 07/06/22 History [Lantus Solostar Pen] Omeprazole 20 mg PO DAILY 11/20/13 07/06/22 History Simvastatin 40 mg PO HS 11/20/13 07/06/22 History amLODIPine 10 mg PO DAILY 11/20/13 07/06/22 History metFORMIN HCL [Glucophage] 1,000 mg PO BID 06/14/16 07/06/22 History Dulaglutide [Trulicity] 1.5 mg SQ TU 04/20/17 07/06/22 History Rivaroxaban [Xarelto] 20 mg PO DAILY 04/20/17 07/06/22 History Acetaminophen Tab [Tylenol] 650 mg PO Q4H PRN 07/03/22 07/06/22 History Amoxicillin 875 mg PO Q12HR 07/03/22 07/06/22 History Meclizine [Antivert] 25 mg PO TID PRN 07/03/22 07/06/22 History Allergies Allergy/AdvReac Type Severity Reaction Status Date / Time codeine Allergy Rash/Hives Verified 07/06/22 07:59 Surgical - Exam Vital Signs Temp Pulse Resp BP Pulse Ox 97.9 F 72 16 158/81 96 07/06/22 08:04 07/06/22 08:04 07/06/22 08:04 07/06/22 08:04 07/06/22 08:04 - General well developed, well nourished, no distress - Eyes PERRL - ENT normal pinna - Neck no masses - Respiratory normal expansion - Cardiovascular Rhythm: regular - Abdomen Abdomen: soft, non tender Assessment and Plan Assessment: We will perform screening colonoscopy. We'll also perform EGD.
--- NOTE | 2022-07-06 08:53 | P.OP ---
Date of Procedure: 07/06/22 Preoperative Diagnosis: Screening colonoscopy. GERD Postoperative Diagnosis: Normal colon Hiatal hernia Mild esophagitis Procedure(s) Performed: Colonoscopy Anesthesia: MAC Surgeon: Yvon Chahal Pathology: other (Antrum, esophagus) Condition: stable Disposition: PACU Description of Procedure: The patient's placed on the endoscopy table in the lateral position. He received IV sedation. The gastroscope placed oropharynx passed in the esophagus into the stomach. Scope was then placed through the pylorus. The first and second portion of the duodenum appeared normal. Scope was then brought back the antrum this was mildly inflamed. A biopsies performed. Scope was unretroflexed and remainder the stomach appeared normal. There was a moderate size hiatal hernia. This was a sliding hiatal hernia. The GE junction was at 38 cm. The distal esophagus appeared mildly inflamed. A biopsies performed. The proximal esophagus appeared normal. Scope withdrawn for patient. Next digital rectal exam performed. This revealed no ebonized. Flexible colonoscope was then placed patient anus and passed throughout the entire colon. The ileocecal valve was visualized. The cecum, ascending and transverse colon appeared normal. The descending and sigmoid colon appeared normal. Scope then brought back the rectum and this appeared normal. Scope withdrawn for patient.
[2022-07-06 09:20] VITALS: BP 155/85; PULSE 73
== END 2022-07-06 09:35 | disposition home or self-care (01) ==
LOC: ORWHC2ENDO 07:29
PROVIDERS: ATTEND Surgery
DX: Z12.11 Encounter for screening for malignant neoplasm of colon (principal); K29.50 Unspecified chronic gastritis without bleeding; K44.9 Diaphragmatic hernia without obstruction or gangrene; K21.00 Gastro-esophageal reflux disease with esophagitis, without bleeding; E11.9 Type 2 diabetes mellitus without complications; E78.5 Hyperlipidemia, unspecified; I10 Essential (primary) hypertension; M19.90 Unspecified osteoarthritis, unspecified site; Z86.718 Personal history of other venous thrombosis and embolism; Z98.890 Other specified postprocedural states; Z87.891 Personal history of nicotine dependence; Z80.1 Family history of malignant neoplasm of trachea, bronchus and lung; Z79.84 Long term (current) use of oral hypoglycemic drugs; Z79.1 Long term (current) use of non-steroidal anti-inflammatories (NSAID); Z79.899 Other long term (current) drug therapy; Z88.5 Allergy status to narcotic agent
CPT/HCPCS: 88305; 43239; J2704; J2001; G0121

== ENCOUNTER → 2023-02-14 | Outpatient (CLI) | payer MEDICARE ==
--- NOTE | 2023-02-15 07:19 | CA ---
Transthoracic Echo Report Name: Rocky Alcocer Age: 83 Gender: M : 1940 Exam Date: 02/14/2023 14:55 Exam Location: [place] [facility] Ht (in): 69 Wt (lb): 190 Ordering Physician: Lexa Aguilar MD Attending/Referring Phys: Enrichment Teacher Ghada Jackson [facility] Procedure CPT: Indications: R01.1 Cardiac Hx: Technical Quality: Technically difficult study Contrast 1: Total Dose (mL): Contrast 2: Total Dose (mL): MEASUREMENTS (Male / Female) Normal Values 2D ECHO LV Diastolic Diameter PLAX 4.2 cm 4.2 - 5.9 / 3.9 - 5.3 cm LV Systolic Diameter PLAX 2.7 cm IVS Diastolic Thickness 1.3 cm 0.6 - 1.0 / 0.6 - 0.9 cm LVPW Diastolic Thickness 1.0 cm 0.6 - 1.0 / 0.6 - 0.9 cm LV Relative Wall Thickness 0.5 LVOT Diameter 2.0 cm Ascending Aorta Diameter 3.2 cm M-MODE Aortic Root Diameter MM 3.5 cm LA Systolic Diameter MM 3.6 cm LA Ao Ratio MM 1.1 AV Cusp Separation MM 1.0 cm DOPPLER AV Peak Velocity 272.4 cm/s AV Peak Gradient 29.7 mmHg AV Mean Velocity 199.7 cm/s AV Mean Gradient 17.1 mmHg AV Velocity Time Integral 51.8 cm LVOT Peak Velocity 106.3 cm/s LVOT Peak Gradient 4.5 mmHg LVOT Velocity Time Integral 21.8 cm LVOT Stroke Volume 67.5 cm??? LVOT Stroke Volume Index 33.4 ml/m??? LVOT Cardiac Index 2611.3 cm???/min???m??? AV Area Cont Eq vti 1.3 cm??? AV Area Cont Eq pk 1.2 cm??? Mitral E Point Velocity 54.2 cm/s Mitral A Point Velocity 68.2 cm/s Mitral E to A Ratio 0.8 MV Deceleration Time 237.9 ms LV E' Lateral Velocity 7.0 cm/s Mitral E to LV E' Lateral Ratio 7.7 LV E' Septal Velocity 6.8 cm/s Mitral E to LV E' Septal Ratio 7.9 TR Peak Velocity 236.4 cm/s TR Peak Gradient 22.4 mmHg Right Atrial Pressure 3.0 mmHg Pulmonary Artery Systolic Pressu 25.4 mmHg Right Ventricular Systolic Press 25.4 mmHg FINDINGS Left Ventricle Mildly increased septal wall thickness. Left ventricular cavity size normal. Mildly reduced global left ventricular systolic function. Left ventricular ejection fraction is estimated at 45-50%. Right Ventricle Moderate right ventricular dilatation. Right Atrium Mild right atrial dilatation. Left Atrium Normal left atrial size. Mitral Valve Structurally normal mitral valve. Mitral valve thickened. Trace to mild mitral regurgitation. Aortic Valve Trileaflet aortic valve. Diffuse thickening of the aortic valve cusps with reduced excursion. Moderate aortic stenosis with a peak gradient of 29.67 mmHg and a mean gradient of 17.16 mmHg. Mild aortic regurgitation. Tricuspid Valve Structurally normal tricuspid valve. Trace tricuspid regurgitation. Pulmonic Valve Structurally normal pulmonic valve. Mild pulmonic regurgitation. Pericardium No pericardial effusion. Echo free space anterior to the right ventricle likely represents a fat pad. Aorta Normal size aortic root and proximal ascending aorta. CONCLUSIONS Mildly impaired LV function. The ejection fraction is 45-50%. Mild concentric LVH Aortic sclerosis with mild to moderate aortic stenosis. The mean gradient is 18 mmHg. Mild aortic insufficiency Thickened mitral valve leaflets with mild mitral regurgitation Previewed by: Dr. Ralph Bobby MD (Electronically Signed) Final Date: 15 February 2023 07:17
== END | disposition home or self-care (01) ==
LOC: RADECHMAIN 14:49
PROVIDERS: ATTEND Family Medicine
DX: I08.0 Rheumatic disorders of both mitral and aortic valves (principal); R01.1 Cardiac murmur, unspecified
CPT/HCPCS: 93306

== ENCOUNTER → 2023-09-01 | Outpatient (CLI) | payer MEDICARE ==
[2023-09-02 07:44] LABS: C Reactive Protein <0.30 mg/dL (0.00-0.80); T4, Free (Free Thyroxine) 1.33 ng/dL (0.80-1.80)
== END | disposition home or self-care (01) ==
LOC: LABWHC1 09:27
PROVIDERS: ATTEND Psychiatry & Neurology Neurology
DX: G62.9 Polyneuropathy, unspecified (principal); R41.3 Other amnesia
CPT/HCPCS: 36415; 82607; 84207; 84439; 84443; 85652; 86140

== ENCOUNTER → 2023-09-19 | Outpatient (CLI) | payer MEDICARE ==
--- NOTE | 2023-09-20 09:47 | MR ---
EXAMINATION TYPE: MR brain/lspine wo con DATE OF EXAM: 09/19/2023 COMPARISON: None HISTORY: Leg weakness, loss of balance CONTRAST: Performed utilizing 0 mL intravenous Gadavist gadolinium contrast. TECHNIQUE: Multiplanar, multiecho imaging on a 3.0 Leighann magnet is performed through the brain. Stud y is performed within 24 hours of arrival to the hospital. The craniovertebral junction is normal. The pituitary is normal. Diffusion-weighted imaging is performed. No abnormal hyperintensity is present to suggest an acute i ntracranial infarct or acute ischemic change. There are multiple scattered punctate hyperintensities in the periventricular white matter and within the centrum semiovale bilaterally. Findings are nonspecific but can be related to chronic microvascu lar ischemic change. Ventricles and sulci are mildly prominent for the patient age. IMPRESSION: 1. Chronic appearing periventricular white matter ischemic type changes. 2. No suspicious acute intracranial process. EXAMINATION TYPE: MR brain/lspine wo con DATE OF EXAM: 09/19/2023 COMPARISON: None HISTORY: Leg weakness, loss of balance CONTRAST: 0 mL intravenous Gadavist. TECHNIQUE: Multiplanar, multisequence images of the lumbar spine were acquired. FINDINGS: Cord terminates at the L1 level. L5-S1: No significant disc bulge is evident. No spinal canal stenosis is present. Neural foramen are widely patent. Disc hydration appears normal. L4-L5: There is loss of disc height at this level. Disc desiccation is present. No focal disc herniat ion or significant disc bulge. No spinal canal stenosis is present. Mild facet hypertrophy is present . L3-L4: Broad-based disc bulge is present. A small central protrusion is present with moderate anterio r thecal sac compression. No AP spinal canal stenosis is present. Facet hypertrophy and ligamentum fl avum laxity have posterior lateral thecal sac impression. Some lateral canal narrowing appears to be present. Neural foramen are patent. L2-L3: There is loss of disc height is level. Modic type I degenerative plate changes are present. Fa cet hypertrophy and ligamentum flavum laxity of posterior lateral thecal sac compression. There is so me mild canal narrowing without stenosis. Neural foramen are patent. L1-L2: No significant disc bulge or disc herniation. Disc desiccation is present. No spinal canal st enosis. No foraminal stenosis. T12-L1: No significant disc bulge or disc herniation. No spinal canal stenosis. No foraminal stenos is. IMPRESSION: 1. Degenerative endplate changes with loss of disc height and disc desiccation L2-3. Facet hypertroph y and disc bulge has some mild canal narrowing without stenosis. 2. Facet hypertrophy and ligamentum flavum laxity at L3-4 may have some lateral canal narrowing.
== END | disposition home or self-care (01) ==
LOC: RADMRIMAIN 13:19
PROVIDERS: ATTEND Psychiatry & Neurology Neurology
DX: M51.36 Other intervertebral disc degeneration, lumbar region (principal); M47.819 Spondylosis without myelopathy or radiculopathy, site unspecified; I67.82 Cerebral ischemia
CPT/HCPCS: 70551; 72148

== ENCOUNTER → 2023-09-24 | Outpatient (CLI) | payer MEDICARE | END | disposition home or self-care (01) | LOC: LABWHC1 09:34 | PROVIDERS: ATTEND Urology | DX: R97.20 Elevated prostate specific antigen [PSA] (principal) | CPT/HCPCS: 36415; 84153 ==

== ENCOUNTER → 2023-10-15 | Outpatient (CLI) | payer MEDICARE ==
--- NOTE | 2023-10-15 19:53 | MR ---
EXAMINATION TYPE: MR cervical spine wo con DATE OF EXAM: 10/15/2023 1:36 PM CLINICAL INDICATION:Male, 83 years old with history of R26.89 leg weakness, Leg weakness. COMPARISON: None. TECHNIQUE: Multi planar, multi sequence imaging was performed utilizing: T1-weighted, T2-weighted, an d turbo inversion recovery imaging of the cervical spine. IV Contrast: cc (none if empty) FINDINGS: Alignment: The cervical vertebral bodies have preserved heights. Alignment is within normal limits gi marcelino patient positioning. Bones: Osteophytes and disc space narrowing most pronounced at the C5-C7 vertebral levels. Cord: The spinal cord is unremarkable with regards to their signal intensity and morphology. Discs: Intervertebral disc signal is maintained. C2-C3: No significant disc pathology. The spinal canal is patent. Bilateral facet and uncovertebral joint arthropathy are present with mild bilateral neural foraminal stenosis. C3-C4: No significant disc pathology. The spinal canal is patent. Bilateral facet and uncovertebral joint arthropathy are present with mild to moderate right and mild left neural foraminal stenosis. C4-C5: No significant disc pathology. The spinal canal is patent. Bilateral facet and uncovertebral joint arthropathy are present with mild bilateral neural foraminal stenosis. C5-C6: A disc osteophyte complex is present with mild spinal canal stenosis. Bilateral facet and unc overtebral joint arthropathy are present with mild to moderate bilateral neural foraminal stenosis. C6-C7: No significant disc pathology. The spinal canal is patent. No neural foraminal stenosis. C7-T1: No significant disc pathology. The spinal canal is patent. No neural foraminal stenosis. Other: None. IMPRESSION: 1. No evidence for disc herniation or significant spinal canal stenosis. 2. Mild disc degeneration with associated osteoarthritic changes. No foraminal stenosis worse at C5-C 6 with [id number] bilateral, right greater than left.
== END | disposition home or self-care (01) ==
LOC: RADMRIMAIN 12:39
PROVIDERS: ATTEND Psychiatry & Neurology Neurology
DX: M47.12 Other spondylosis with myelopathy, cervical region (principal); M48.02 Spinal stenosis, cervical region; M50.00 Cervical disc disorder with myelopathy, unspecified cervical region; R26.89 Other abnormalities of gait and mobility
CPT/HCPCS: 72141

== ENCOUNTER 2024-01-02 10:45 | Emergency (ER) | payer MEDICARE ==
--- NOTE | 2024-01-02 11:03 | ED ---
General Adult HPI - General Source: patient, RN notes reviewed Mode of arrival: ambulatory Limitations: no limitations <Floyd Conner - Last Filed: 01/02/24 11:02> <Chanda Ruiz - Last Filed: 01/02/24 19:19> - General Chief complaint: ENT Stated complaint: throat pain Time Seen by Provider: 01/02/24 10:59 - History of Present Illness Initial comments: Quick note - 83-year-old male presents emergency department with chief complaint of sore throat comfortable swelling. Patient states he seen in urgent care the other day was given steroids, antibiotic shot states it seemed to help with states his return he went back to urgent care and they told there is nothing to do to come Emergency Department for evaluation he states he feels like his voice is changed from his normal baseline. (Floyd Conner) 83-year-old male presents to the emergency department for evaluation of sore throat. Patient states that on Sunday he was obtained from urgent care for this. He states that he was given a dose of IM steroids at that time. He is also provided oral antibiotics. He states that he is still taking these. He does report that the steroid seemed to help him significantly but yesterday he noticed that the pain had returned. He does note some changes in his voice and painful swallowing. He denies any difficulty breathing. (Chanda Ruiz) - Related Data Home Medications Medication Instructions Recorded Confirmed Insulin Glargine,Hum.rec.anlog 30 unit SQ HS 11/20/13 04/02/23 [Lantus Solostar Pen] Omeprazole 20 mg PO BID 11/20/13 03/27/23 metFORMIN HCL [Glucophage] 1,000 mg PO BID 06/14/16 03/27/23 Dulaglutide [Trulicity] 1.5 mg SQ MO 04/20/17 04/02/23 Empagliflozin [Jardiance] 10 mg PO DAILY 03/27/23 03/27/23 Ferrous Sulfate [Iron] 325 mg PO DAILY 03/27/23 03/27/23 Metoprolol Succinate (ER) [Toprol 25 mg PO DAILY 03/27/23 03/27/23 XL] Previous Rx's Medication Instructions Recorded Aspirin 81 mg PO ONCE 90 Days #90 tab 04/02/23 Atorvastatin [Lipitor] 80 mg PO DAILY 90 Days #90 tab 04/02/23 Clopidogrel [Plavix] 75 mg PO DAILY 90 Days #90 tablet 04/02/23 Losartan [Cozaar] 25 mg PO DAILY 30 Days #30 tab 04/02/23 Nitroglycerin Sl Tabs [Nitrostat] 0.4 mg SUBLINGUAL Q5M PRN 30 Days 04/02/23 #30 tab amLODIPine [Norvasc] 5 mg PO DAILY 30 Days #30 tab 04/02/23 predniSONE 50 mg PO DAILY #5 tab 01/02/24 Allergies Allergy/AdvReac Type Severity Reaction Status Date / Time codeine Allergy Rash/Hives Verified 01/02/24 10:56 Review of Systems ROS Other: All systems not noted in ROS Statement are negative. <Floyd Conner - Last Filed: 01/02/24 11:02> ROS Other: All systems not noted in ROS Statement are negative. <Chanda Ruiz - Last Filed: 01/02/24 19:19> ROS Statement: Those systems with pertinent positive or pertinent negative responses have been documented in the HPI. Past Medical History Past Medical History: Diabetes Mellitus, Deep Vein Thrombosis (DVT), GERD/Reflux, Hyperlipidemia, Hypertension, Osteoarthritis (OA) Additional Past Medical History / Comment(s): Recurrent DVT -LEFT LEG, INCARCERATED UMBILICAL HERNIA, anemia History of Any Multi-Drug Resistant Organisms: ESBL, MRSA Date of last positivie culture/infection: 07/06/21 ESBL; 12/11/07-MRSA MDRO Source:: Urine-ESBL; Source unknown-MRSA Past Surgical History: Orthopedic Surgery Additional Past Surgical History / Comment(s): colonoscopy, BLADDER STONE REMOVED, ROBOTIC ASSISTED LAPROSCOPIC INCARCERATED UMBILICAL HERNIA REPAIR W/MESH, TOTAL RIGHT KNEE 18, RIGHT TOTAL HIP,UTI Past Anesthesia/Blood Transfusion Reactions: No Reported Reaction, Motion Sickness Past Psychological History: No Psychological Hx Reported Smoking Status: Former smoker Past Alcohol Use History: None Reported Past Drug Use History: None Reported - Past Family History Son(s) Family Medical History: Cancer Additional Family Medical History / Comment(s): LUNG CANCER Mother Family Medical History: Dementia Brother(s) Family Medical History: Cancer Additional Family Medical History / Comment(s): LARYNX CANCER <Floyd Conner - Last Filed: 01/02/24 11:02> General Exam Limitations: no limitations <Floyd Conner - Last Filed: 01/02/24 11:02> Limitations: no limitations General appearance: alert, in no apparent distress Head exam: Present: atraumatic, normocephalic, normal inspection Eye exam: Present: normal appearance, PERRL, EOMI. Absent: scleral icterus, conjunctival injection, periorbital swelling ENT exam: Present: other (Swelling of the posterior tonsillar pillars). Absent: normal oropharynx Neck exam: Present: normal inspection, lymphadenopathy. Absent: tenderness, meningismus Respiratory exam: Present: normal lung sounds bilaterally. Absent: respiratory distress, wheezes, rales, rhonchi, stridor Cardiovascular Exam: Present: regular rate, normal rhythm, normal heart sounds. Absent: systolic murmur, diastolic murmur, rubs, gallop, clicks Neurological exam: Present: alert, oriented X3 Psychiatric exam: Present: normal affect, normal mood Skin exam: Present: warm, dry, intact, normal color. Absent: rash <Chanda Ruiz - Last Filed: 01/02/24 19:19> - General Exam Comments Initial Comments: Visual Physical Exam Vital signs reviewed General: Well-appearing, nontoxic, no acute distress. Head: Normocephalic, atraumatic Eyes: PERRLA, EOMI ENT: Airway patent Chest: Nonlabored breathing Skin: No visual rash, normal skin tone Neuro: Alert and oriented 3 Musculoskeletal: No gross abnormalities (Floyd Conner) Course Vital Signs 01/02/24 01/02/24 01/02/24 10:54 14:00 14:42 Temperature 98.4 F 98.4 F 98.1 F Pulse Rate 73 68 68 Respiratory 20 18 18 Rate Blood Pressure 157/80 177/84 168/89 O2 Sat by Pulse 99 99 99 Oximetry Medical Decision Making <Floyd Conner - Last Filed: 01/02/24 11:02> - Lab Data Result diagrams: 01/02/24 10:57 01/02/24 10:57 <Chanda Ruiz - Last Filed: 01/02/24 19:19> - Medical Decision Making I completed the quick note portion of this chart signed Floyd Conner PA-C (Floyd Conner) Was pt. sent in by a medical professional or institution (Dr., PA, HEAD OF CYTOGENETICS, urgent care, hospital, or fpc...) When possible be specific @ -No Did you speak to anyone other than the patient for history (EMS, parent, family, police, friend...)? What history was obtained from this source @ -No Did you review nursing and triage notes (agree or disagree)? Why? @ -I reviewed and agree with nursing and triage notes Were old charts reviewed (outside hosp., previous admission, EMS record, old EKG, old radiological studies, urgent care reports/EKG's, fpc records)? Report findings @ -No old charts were reviewed Differential Diagnosis (chest pain, altered mental status, abdominal pain women, abdominal pain men, vaginal bleeding, weakness, fever, dyspnea, syncope, headache, dizziness, GI bleed, back pain, seizure, CVA, palpatations, mental health, musculoskeletal)? @ -Pharyngitis, peritonsillar abscess, retropharyngeal abscess, this list is not all inclusive EKG interpreted by me (3pts min.). @ -None X-rays interpreted by me (1pt min.). @ -None done CT interpreted by me (1pt min.). @ -CT of the soft tissues of the neck shows Asymmetrical thickening of the left palate teen tonsillar region in the left false vocal cord region- inflammatory/infectious versus malignancy U/S interpreted by me (1pt. min.). @ -None done What testing was considered but not performed or refused? (CT, X-rays, U/S, labs)? Why? @ -None What meds were considered but not given or refused? Why? @ -None Did you discuss the management of the patient with other professionals (professionals i.e. , PA, HEAD OF CYTOGENETICS, lab, RT, psych nurse, outreach and education social worker, latin american studies director, teacher, co founder and chief strategy officer, continuous pillowcase cutter)? Give summary @ -Case was discussed with patient's primary care provider, Dr. Aguilar who states that if patient's vital signs are stable and his symptoms improved with IV treatment after observing for 1 hour, patient can be discharged with outpatient follow-up tomorrow in the office. Was smoking cessation discussed for >3mins.? @ -No Was critical care preformed (if so, how long)? @ -No Were there social determinants of health that impacted care today? How? (Homelessness, low income, unemployed, alcoholism, drug addiction, transportation, low edu. Level, literacy, decrease access to med. care, [facility], r ehab)? @ -No Was there de-escalation of care discussed even if they declined (Discuss DNR or withdrawal of care, Hospice)? DNR status @ -No What co-morbidities impacted this encounter? (DM, HTN, Smoking, COPD, CAD, Cancer, CVA, ARF, Chemo, Hep., AIDS, mental health diagnosis, sleep apnea, morbid obesity)? @ -None Was patient admitted / discharged? Hospital course, mention meds given and route, prescriptions, significant lab abnormalities, going to OR and other pertinent info. @ -Discharged. Patient presented to the emergency department for evaluation of sore throat. Laboratory studies were obtained. CBC, CMP essentially unremarkable. Negative for strep pharyngitis. CT of the soft tissues of the neck show asymmetrical thickening of the left palatine tonsillar region and the false vocal cord region of inflammatory/infectious versus malignant etiology. Patient was provided IV steroids, antibiotics while in the emergency department. He was also given a prescription for p.o. steroids and advised to continue his p.o. antibiotics. Patient reports that he feels improvement after this treatment. Case was discussed with Dr. Aguilar who will follow-up with the patient in the office tomorrow. I advised the patient to call the office once he leaves the ED. he is understanding and agreeable with this plan. Patient stable at time of discharge. Case discussed with Dr. Cavanaugh. Undiagnosed new problem with uncertain prognosis? @ -No Drug Therapy requiring intensive monitoring for toxicity (Heparin, Nitro, Insulin, Cardizem)? @ -No Were any procedures done? @ -No Diagnosis/symptom? @ -Sore throat, throat swelling Acute, or Chronic, or Acute on Chronic? @ -Acute Uncomplicated (without systemic symptoms) or Complicated (systemic symptoms)? @ -Complicated Side effects of treatment? @ -No Exacerbation, Progression, or Severe Exacerbation? @ -No Poses a threat to life or bodily function? How? (Chest pain, USA, ID, pneumonia, PE, COPD, DKA, ARF, appy, cholecystitis, CVA, Diverticulitis, Homicidal, Suicidal, threat to staff... and all critical care pts) @ -No (Chanda Ruiz) - Lab Data Lab Results 01/02/24 01/02/24 01/02/24 Range/Units 10:57 10:57 10:57 WBC 9.3 (3.8-10.6) k/uL RBC 4.45 (4.30-5.90) m/uL Hgb 14.2 (13.0-17.5) gm/dL Hct 43.3 (39.0-53.0) % MCV 97.2 (80.0-100.0) fL MCH 31.9 (25.0-35.0) pg MCHC 32.8 (31.0-37.0) g/dL RDW 13.1 (11.5-15.5) % Plt Count 170 (150-450) k/uL MPV 8.3 Neutrophils % 77 % Lymphocytes % 15 % Monocytes % 6 % Eosinophils % 1 % Basophils % 0 % Neutrophils # 7.2 (1.3-7.7) k/uL Lymphocytes # 1.4 (1.0-4.8) k/uL Monocytes # 0.6 (0-1.0) k/uL Eosinophils # 0.1 (0-0.7) k/uL Basophils # 0.0 (0-0.2) k/uL Sodium 142 (137-145) mmol/L Potassium 3.6 (3.5-5.1) mmol/L Chloride 105 (98-107) mmol/L Carbon Dioxide 26 (22-30) mmol/L Anion Gap 11 mmol/L BUN 16 (9-20) mg/dL Creatinine 0.78 (0.66-1.25) mg/dL Est GFR (CKD-EPI)AfAm >90 (>60 ml/min/1.73 sqM) Est GFR (CKD-EPI)NonAf 85 (>60 ml/min/1.73 sqM) Glucose 112 H (74-99) mg/dL Calcium 9.7 (8.4-10.2) mg/dL Total Bilirubin 0.9 (0.2-1.3) mg/dL AST 25 (17-59) U/L ALT 16 (4-49) U/L Alkaline Phosphatase 52 (38-126) U/L Total Protein 7.4 (6.3-8.2) g/dL Albumin 4.7 (3.5-5.0) g/dL Group A Strep (PCR) NOT DETECTED (Not Detectd) Disposition <Floyd Conner - Last Filed: 01/02/24 11:02> Is patient prescribed a controlled substance at d/c from ED?: No <Chanda Ruiz - Last Filed: 01/02/24 19:19> Clinical Impression: Peritonsillar cellulitis, Sore throat Disposition: HOME SELF-CARE Condition: Stable Instructions (If sedation given, give patient instructions): Strep Throat (ED) Additional Instructions: Please follow up with Dr. Aguilar tomorrow. Return to the emergency department for new or worsening symptoms. Prescriptions: predniSONE 50 mg PO DAILY #5 tab Referrals: Lexa Aguilar MD [Primary Care Provider] - 1-2 days Chava Richardson MD [STAFF PHYSICIAN] - 1-2 days
[2024-01-02 11:14] LABS: Basophils % (A) 0 %; Eosinophils # (A) 0.1 k/uL (0-0.7); Eosinophils % (A) 1 %; HCT 43.3 % (39.0-53.0); HGB 14.2 gm/dL (13.0-17.5); Lymphocytes # (A) 1.4 k/uL (1.0-4.8); Lymphocytes % (A) 15 %; MCH 31.9 pg (25.0-35.0); MCHC 32.8 g/dL (31.0-37.0); MCV 97.2 fL (80.0-100.0); Mean Platelet Volume 8.3; Monocytes # (A) 0.6 k/uL (0-1.0); Monocytes % (A) 6 %; Neutrophils # (A) 7.2 k/uL (1.3-7.7); Neutrophils % (A) 77 %; Platelet Count 170 k/uL (150-450); RBC 4.45 m/uL (4.30-5.90); RDW 13.1 % (11.5-15.5); WBC 9.3 k/uL (3.8-10.6)
[2024-01-02 11:33] LABS: ALT 16 U/L (4-49); AST 25 U/L (17-59); African American GFR (CKD) >90 (>60 ml/min/1.73 sqM); Albumin 4.7 g/dL (3.5-5.0); Alkaline Phosphatase 52 U/L (38-126); Anion Gap 11 mmol/L; Blood Urea Nitrogen 16 mg/dL (9-20); Calcium 9.7 mg/dL (8.4-10.2); Carbon Dioxide 26 mmol/L (22-30); Chloride 105 mmol/L (98-107); Glucose 112 mg/dL (74-99); Non-African American GFR(CKD) 85 (>60 ml/min/1.73 sqM); Potassium 3.6 mmol/L (3.5-5.1); Sodium 142 mmol/L (137-145); Total Bilirubin 0.9 mg/dL (0.2-1.3); Total Protein 7.4 g/dL (6.3-8.2)
--- NOTE | 2024-01-02 12:23 | CT ---
EXAMINATION TYPE: CT soft tissue neck w con CT DLP: 286.7 mGycm, Automated exposure control for dose reduction was used. DATE OF EXAM: 01/02/2024 12:02 PM COMPARISON: No direct comparisons. CLINICAL INDICATION:Male, 83 years old with history of Difficulty swallowing; PHH, Difficulty swallow ing TECHNIQUE: Standard enhanced CT of the neck following intravenous administration of 100 cc of Isovue 300. Axial sections with coronal and sagittal reformats were obtained. FINDINGS: Brain: Visualized portions are grossly unremarkable. Orbits: Bilateral aphakia. Right scleral calcification. Sinuses: Grossly unremarkable. Suprahyoid Neck: Asymmetrical left thickening in the region of the left palatine seen tonsil (series 201, image 64). The nasopharynx is unremarkable. Infrahyoid Neck: Asymmetrical thickening of the region of the left false vocal cord (series 21, image 44). Parotid Glands: Unremarkable. Submandibular Glands: Unremarkable. Musculoskeletal: Degenerative disc disease changes of the visualized spine are present. Prominent pos terior disc possibly complicated set of C5-C6. No acute process. Lymph nodes: Few nonenlarged lymph nodes are seen along both anterior chains of the neck. Vascular structures: Mild atherosclerotic calcifications of the carotid bulb. Mild vascular calcifica tion of the aortic arch and its branches. Thoracic Inlet/airway: Airway is patent. The lung apices ar e clear. Soft tissues/Thyroid: Thyroid and remainder of the soft tissues are unremarkable. Other: none. IMPRESSION Regions of asymmetrical thickening involving the left palatine tonsillar region and left falx vocal c ord region. Etiologies include infectious/inflammatory processes versus malignancy. Direct visualizat ion is recommended.
[2024-01-02] MEDS: SODIUM CHLORIDE 0.9% 1,000 ML IV ONE (12:48)
[2024-01-02] MEDS: DEXAMETHASONE SOD PHOSPHATE 10 MG/ML 1 ML VIAL IVP STA (12:49)
[2024-01-02] MEDS: CLINDAMYCIN 600 MG in DEXTROSE 5% IN WATER 50 ML IVPB STA (13:24)
[2024-01-02 14:27] VITALS: PULSE 68; RESP 18
[2024-01-02 14:44] VITALS: BP 168/89; TEMP 98.1
== END 2024-01-02 15:15 | disposition home or self-care (01) ==
LOC: EC 10:45
DX: J36 Peritonsillar abscess (principal); Z87.891 Personal history of nicotine dependence; Z88.5 Allergy status to narcotic agent
CPT/HCPCS: 36415; 87651; 80053; 85025; 87040; 70491; 99284; 96365; 96367; 96375; J1100; J0696; Q9967; J0736